=== PATIENT | male | born 2000 | race Caucasian/White ===

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

== ENCOUNTER 2019-09-15 14:22 | Emergency (ER) | payer BC, SELFPAY ==
--- NOTE | 2019-09-15 15:31 | EDPHYS ---
Physician Documentation [facility] Name: Salvador Salazar Age: 19 yrs Sex: Male : 2000 Arrival Date: 09/15/2019 Time: 14:28 Bed 23 Private MD: SCOTT Physician Steffen Castellon HPI: 09/14 15:25 This 19 yrs old Male presents to ER via Ambulatory with complaints of dane Toothache. 15:25 This 19 yrs old Male presents to ER via Ambulatory with complaints of dane Toothache. 15:25 The patient presents with pain, redness, swelling. The problem is located in the lower dane right third molar. Onset: The symptoms/episode began/occurred 3 day(s) ago. Duration: The symptoms are continuous, and are steadily getting worse. Modifying factors: The symptoms are alleviated by nothing, the symptoms are aggravated by chewing. Associated signs and symptoms: The patient has no apparent associated signs or symptoms. Severity of symptoms: At their worst the symptoms were moderate, in the emergency department the symptoms are unchanged. The patient has not experienced similar symptoms in the past. Historical: - Allergies: 14:39 No Known Allergies; ss - PSHx: 14:39 Appendectomy; ss - Immunization history:: Flu vaccine is not up to date. - Social history:: Smoking status: Patient reports the use of cigarette tobacco products, smokes one-half pack cigarettes per day, Patient uses alcohol, occasionally. Patient/guardian denies using street drugs. - Family history:: not pertinent. ROS: 15:25 Constitutional: Negative for fever, chills, and weight loss, Eyes: Negative for injury, dane pain, redness, and discharge, ENT: Negative for injury, pain, and discharge, Neck: Negative for injury, pain, and swelling, Respiratory: Negative for shortness of breath, cough, wheezing, and pleuritic chest pain, Abdomen/GI: Negative for abdominal pain, nausea, vomiting, diarrhea, and constipation, Back: Negative for injury and pain, : Negative for injury, bleeding, discharge, and swelling, MS/Extremity: Negative for injury and deformity, Skin: Negative for injury, rash, and discoloration, Neuro: Negative for headache, weakness, numbness, tingling, and seizure, Psych: Negative for depression, anxiety, suicide ideation, homicidal ideation, and hallucinations, Allergy/Immunology: Negative for hives, rash, and allergies, Endocrine: Negative for neck swelling, polydipsia, polyuria, polyphagia, and marked weight changes, Hematologic/Lymphatic: Negative for swollen nodes, abnormal bleeding, and unusual bruising. 15:25 Cardiovascular: Negative for chest pain, palpitations, and edema. 15:25 ENT: Positive for Teeth pain 15:25 Cardiovascular: Positive for Exam: 15:25 Constitutional: This is a well developed, well nourished patient who is awake, alert, dane and in no acute distress. Head/Face: Normocephalic, atraumatic. Eyes: Pupils equal round and reactive to light, extra-ocular motions intact. Lids and lashes normal. Conjunctiva and sclera are non-icteric and not injected. Cornea within normal limits. Periorbital areas with no swelling, redness, or edema. Neck: Trachea midline, no thyromegaly or masses palpated, and no cervical lymphadenopathy. Supple, full range of motion without nuchal rigidity, or vertebral point tenderness. No Meningismus. Chest/axilla: Normal chest wall appearance and motion. Nontender with no deformity. No lesions are appreciated. Cardiovascular: Regular rate and rhythm with a normal S1 and S2. No gallops, murmurs, or rubs. Normal PMI, no JVD. No pulse deficits. Respiratory: Lungs have equal breath sounds bilaterally, clear to auscultation and percussion. No rales, rhonchi or wheezes noted. No increased work of breathing, no retractions or nasal flaring. Abdomen/GI: Soft, non-tender, with normal bowel sounds. No distension or tympany. No guarding or rebound. No evidence of tenderness throughout. Back: No spinal tenderness. No costovertebral tenderness. Full range of motion. Male : Normal genitalia with no discharge or lesions. Skin: Warm, dry with normal turgor. Normal color with no rashes, no lesions, and no evidence of cellulitis. MS/ Extremity: Pulses equal, no cyanosis. Neurovascular intact. Full, normal range of motion. Neuro: Awake and alert, GCS 15, oriented to person, place, time, and situation. Cranial nerves II-XII grossly intact. Motor strength 5/5 in all extremities. Sensory grossly intact. Cerebellar exam normal. Normal gait. Psych: Awake, alert, with orientation to person, place and time. Behavior, mood, and affect are within normal limits. 15:25 ENT: Mouth: Lips: normal, moist, Oral mucosa: moist, Gums: noted to have cellulitis, reddened, Tongue: is normal, abscess, is not appreciated, drooling, is not appreciated. Vital Signs: 14:37 BP 139 / 96; Pulse 86; Resp 17; Temp 98.0; Pulse Ox 99% ; Weight 81.65 kg; Height 5 ft. ss 10 in. (177.80 cm); Pain 3/10; 14:37 Body Mass Index 25.83 (81.65 kg, 177.80 cm) MDM: 14:47 Patient medically screened. [facility] 15:29 Data reviewed: vital signs, nurses notes. [facility] Administered Medications: 15:35 Drug: Motrin 800 mg Route: PO; 15:40 Follow up: Response: Medication administered at discharge. 15:35 Drug: Augmentin 875 mg Route: PO; 15:40 Follow up: Response: No adverse reaction; Medication administered at discharge. Disposition: 09/15/19 15:30 Discharged to Home. Impression: Dental caries. - Condition is Stable. - Discharge Instructions: Dental Pain, Dental Pain, [id number]. - Prescriptions for Ibuprofen 600 mg Oral Tablet - take 1 tablet by ORAL route every 8 hours As needed take with food; 21 tablet. Tylenol- Codeine #3 300-30 mg Oral Tablet - take 2 tablet by ORAL route every 6 hours As needed; 30 tablet. - Medication Reconciliation Form, Thank You Letter, Antibiotic Education, Prescription Opioid Use form. - Work release form (09/15/19 15:39). ss - Follow up: Private Physician; When: 2 - 3 days; Reason: Recheck today's complaints, Continuance of care, Re-evaluation by your physician. - Problem is new. - Symptoms have improved. Signatures: Steffen Castellon MD MD cha Smirch, Shelby, RN RN Corrections: (The following items were deleted from the chart) 15:36 15:30 09/15/2019 15:30 Discharged to Home. Impression: Dental caries. Condition is ss Stable. Forms are Medication Reconciliation Form, Thank You Letter, Antibiotic Education, Prescription Opioid Use. Follow up: Private Physician; When: 2 - 3 days; Reason: Recheck today's complaints, Continuance of care, Re-evaluation by your physician. Problem is new. Symptoms have improved. dane
--- NOTE | 2019-09-15 15:31 | ER ---
Nurse's Notes [facility] Name: Salvador Salazar Age: 19 yrs Sex: Male : 2000 Arrival Date: 09/15/2019 Time: 14:28 Bed 23 Private MD: Diagnosis: Dental caries Presentation: 09/14 14:37 Chief complaint: Patient states: Right lower jaw tooth and gum pain for 1 week ss intermittently. No known fever. Coronavirus screen: Patient denies fever greater than 100.4F, cough, shortness of breath, or difficulty breathing. Proceed with normal triage process. Ebola Screen: Patient denies travel to an Ebola-affected area in the 21 days before illness onset. Initial Sepsis Screen: Does the patient meet any 2 criteria? No. Patient's initial sepsis screen is negative. Does the patient have a suspected source of infection? No. Patient's initial sepsis screen is negative. Risk Assessment: Do you want to hurt yourself or someone else? Patient reports no desire to harm self or others. 14:37 Method Of Arrival: Ambulatory ss 14:37 Acuity: FELICITAS 5 ss Historical: - Allergies: 14:39 No Known Allergies; ss - PSHx: 14:39 Appendectomy; ss - Immunization history:: Flu vaccine is not up to date. - Social history:: Smoking status: Patient reports the use of cigarette tobacco products, smokes one-half pack cigarettes per day, Patient uses alcohol, occasionally. Patient/guardian denies using street drugs. - Family history:: not pertinent. Screenin:49 Abuse screen: Denies threats or abuse. Denies injuries from another. Nutritional ss screening: No deficits noted. Tuberculosis screening: Never had TB. Fall Risk None identified. Vital Signs: 14:37 BP 139 / 96; Pulse 86; Resp 17; Temp 98.0; Pulse Ox 99% ; Weight 81.65 kg; Height 5 ft. ss 10 in. (177.80 cm); Pain 3/10; 14:37 Body Mass Index 25.83 (81.65 kg, 177.80 cm) ss ED Course: 14:28 Patient arrived in ED. am2 14:39 Triage completed. ss 14:40 Arm band placed on. 14:47 Steffen Castellon MD is Attending Physician. [facility] 14:49 Smirch, Marivel, RN is Primary Nurse. 14:49 Patient has correct armband on for positive identification. Bed in low position. Call light in reach. 15:35 No provider procedures requiring assistance completed. Patient did not have IV access ss during this emergency room visit. Administered Medications: 15:35 Drug: Motrin 800 mg Route: PO; ss 15:40 Follow up: Response: Medication administered at discharge. ss 15:35 Drug: Augmentin 875 mg Route: PO; ss 15:40 Follow up: Response: No adverse reaction; Medication administered at discharge. Outcome: 15:30 Discharge ordered by . [facility] 15:35 Discharged to home ambulatory. 15:35 Condition: good 15:35 Discharge instructions given to patient, Instructed on discharge instructions, follow up and referral plans. medication usage, Demonstrated understanding of instructions, follow-up care, medications, Prescriptions given X 2. 15:36 Patient left the ED. Signatures: Steffen Castellon MD MD cha Smirch, Shelby, RN RN Martita Horton am2
[2019-09-15] MEDS ORDERED: AMOX/K CLAV 875 MG TAB ONE (15:41)
[2019-09-15] MEDS ORDERED: IBUPROFEN 400 MG TAB ONE (15:41)
[2019-09-15 15:44] VITALS: BP 139/96; TEMP 98; O2SAT 99
== END 2019-09-15 15:36 | disposition home or self-care (01) ==
LOC: ER 14:22
DX: K02.9 Dental caries, unspecified (principal); F17.210 Nicotine dependence, cigarettes, uncomplicated
CPT/HCPCS: 99283

== ENCOUNTER 2024-07-02 18:49 | Emergency (ER) | payer BC, SELFPAY ==
--- OUTSIDE RECORDS SUMMARY | 2024-07-02 18:52 | XMS REPORT | Continuity of Care Document ---
Author Name Unknown Address [address] [facility] [address] [place] [address] [facility] thconnect Address [address] [facility] [address] [place] [address] Care Team Providers Care Supervisor Sawmill Name Role Phone Abby_Raman Attending Clinician Unavailable Jacey Camargo Attending Clinician [phone] CIRA Attending Clinician Unavailable Ryanne Garcia Attending Clinician [phone] ALMAZ Attending Clinician Unavailable Keshia Jurado Attending Clinician [phone] Irma Mcmillan Attending Clinician + [phone] Keisha Putnam Attending Clinician [phone] KEISHA MOSER Attending Clinician Unavailable Lab, Adc Fam Pob I Attending Clinician Unavailab Sosa Dos Santos Attending Clinician [phone] [facility] Attending Clinician Unavailable Doctor Unassigned, Deport Attending Clinician U kavon Canales Admitting Clinician Unavailable CIRA Admitting Clinician Unavailable ALMAZ Admitting Clinician Unavailable Payers Payer Name Policy Type Policy Number Effective Date [place]pir[place] on Date Source [place] [id number] 2018 00:00:00 Problems Condition Name Condition Details Condition Category Status Onset Date Resolution Date Last Treatment Date Treating Clinician Comments Source Pain in right foot Pain in Right Foot Problem Active 06-27 00:00: 00 [facility] Strain of muscle of right foot Strain of Muscle of Right Foot Problem Active 06-27 00:00: 00 [facility] Low back pain Low Back Pain Problem Active 2021-06 2 00:00: 00 [facility] 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 and Depressive Disorder Problem Active 2019-06 00:00: 00 [facility] Anxiety Anxiety Disease Active 02-27 00:00: 00 [facility] ADD (attention deficit disorder) ADD (attention deficit disorder) Disease Active 02-27 00:00: 00 [facility] Allergies, Adverse Reactions, Alerts Allergy Name Allergy Type Status Severity Reaction(s) Onset Date Inactive Date Treating Clinician Comments Source NO KNOWN ALLERGIE S Drug Class Active [facility] Social History Social Habit Start Date Stop Date Quantity Comments Source Sex Assigned At [facility] Exposure to SARS-CoV-2 (event) Not sure [facility] Alcohol intake 2019-09-18 00:00:00 2019-09-18 00:00:00 Current drinker of alcohol (finding) [facility] Tobacco use and exposure 2019-09-18 00:00:00 2019-09-18 00:00:00 Never used [facility] Smoking Status Start Date Stop Date Source Former Smoker [facility] Never smoker [facility] Medications Ordered Medication Name Filled Medication Name Start Date Stop Date Current Medication? Ordering Clinician Indication Dosage Frequency Signature (SIG) Comments Components Source FLUoxetine (PROZAC) 10 mg capsule 07-22 22:39: 20 Yes 10mg Take 10 mg by mouth daily. [facility] QUEtiapine (SEROQUEL) 100 mg tablet 10-08 00:00: 00 07-22 00:00 :00 No [id number] 100mg Take 1 tablet by mouth at bedtime. [facility] cetirizine 10 mg tablet Take 1 tablet every day by oral route. cetirizine 10 mg tablet Take 1 tablet every day by oral route. No 1 Q1D cetirizine 10 mg tablet Take 1 tablet every day by oral route. [facility] fluoxetine 20 mg capsule Take 1 capsule every day by oral route for 90 days. fluoxetine 20 mg capsule Take 1 capsule every day by oral route for 90 days. No 1capsul e(s) Q1D fluoxetine 20 mg capsule Take 1 capsule every day by oral route for 90 days. [facility] Vital Signs Vital Name Observation Time Observation Value Comments S ource BMI (Body Mass Index) 2024-05-06 00:00:00 27.5 kg/m2 [facility] BP Systolic 2024-05-06 00:00:00 130 mm[Hg] [facility] Height 2024-05-06 00:00:00 70 [in_i] [facility] Body Weight 2024-05-06 00:00:00 3072 [oz_av] [facility] BP Diastolic 2024-05-06 00:00:00 75 mm[Hg] [facility] Height 2023-10-05 00:00:00 70 [in_i] [facility] BMI (Body Mass Index) 2023-10-05 00:00:00 27.3 kg/m2 [facility] BP Diastolic 2023-10-05 00:00:00 84 mm[Hg] [facility] Body Weight 2023-10-05 00:00:00 3040 [oz_av] [facility] BP Systolic 2023-10-05 00:00:00 131 mm[Hg] [facility] BMI (Body Mass Index) 2023-03-29 00:00:00 27.6 kg/m2 [facility] BP Diastolic 2023-03-29 00:00:00 71 mm[Hg] [facility] BP Systolic 2023-03-29 00:00:00 125 mm[Hg] [facility] Body Weight 2023-03-29 00:00:00 3081.6 [oz_av] [facility] Height 2023-03-29 00:00:00 70 [in_i] [facility] BP Diastolic 2022-06-27 00:00:00 71 mm[Hg] [facility] Height 2022-06-27 00:00:00 70 [in_i] [facility] BMI (Body Mass Index) 2022-06-27 00:00:00 27.6 kg/m2 [facility] BP Systolic 2022-06-27 00:00:00 116 mm[Hg] [facility] Body Weight 2022-06-27 00:00:00 3078.4 [oz_av] [facility] BP Diastolic 2022-05-23 00:00:00 71 mm[Hg] [facility] Height 2022-05-23 00:00:00 70 [in_i] [facility] BMI (Body Mass Index) 2022-05-23 00:00:00 26.7 kg/m2 [facility] BP Systolic 2022-05-23 00:00:00 126 mm[Hg] [facility] Body Weight 2022-05-23 00:00:00 2976 [oz_av] [facility] BP Diastolic 2022-02-02 00:00:00 72 mm[Hg] [facility] Height 2022-02-02 00:00:00 70 [in_i] [facility] BMI (Body Mass Index) 2022-02-02 00:00:00 25.5 kg/m2 [facility] BP Systolic 2022-02-02 00:00:00 118 mm[Hg] [facility] Body Weight 2022-02-02 00:00:00 2844.8 [oz_av] [facility] BP Diastolic 2021-12-28 00:00:00 69 mm[Hg] [facility] Height 2021-12-28 00:00:00 70 [in_i] [facility] BMI (Body Mass Index) 2021-12-28 00:00:00 25 kg/m2 [facility] BP Systolic 2021-12-28 00:00:00 134 mm[Hg] [facility] Body Weight 2021-12-28 00:00:00 2790.4 [oz_av] [facility] BP Diastolic 2021-08-25 00:00:00 78 mm[Hg] [facility] Height 2021-08-25 00:00:00 70 [in_i] [facility] BMI (Body Mass Index) 2021-08-25 00:00:00 28.5 kg/m2 [facility] BP Systolic 2021-08-25 00:00:00 118 mm[Hg] [facility] Body Weight 2021-08-25 00:00:00 3180.8 [oz_av] [facility] BP Diastolic 2021-03-12 00:00:00 75 mm[Hg] [facility] Height 2021-03-12 00:00:00 70 [in_i] [facility] BMI (Body Mass Index) 2021-03-12 00:00:00 27.4 kg/m2 [facility] BP Systolic 2021-03-12 00:00:00 126 mm[Hg] [facility] Body Weight 2021-03-12 00:00:00 3059.2 [oz_av] [facility] BP Diastolic 2021-02-02 00:00:00 79 mm[Hg] [facility] Height 2021-02-02 00:00:00 70 [in_i] [facility] BMI (Body Mass Index) 2021-02-02 00:00:00 27.8 kg/m2 [facility] BP Systolic 2021-02-02 00:00:00 121 mm[Hg] [facility] Body Weight 2021-02-02 00:00:00 3097.6 [oz_av] [facility] BP Diastolic 2020-07-28 00:00:00 73 mm[Hg] [facility] Height 2020-07-28 00:00:00 70 [in_i] [facility] BMI (Body Mass Index) 2020-07-28 00:00:00 29.6 kg/m2 [facility] BP Systolic 2020-07-28 00:00:00 132 mm[Hg] [facility] Body Weight 2020-07-28 00:00:00 3302.4 [oz_av] [facility] Systolic blood pressure 2020-07-22 22:41:00 126 mm[Hg] [facility] Diastolic blood pressure 2020-07-22 22:41:00 82 mm[Hg] [facility] Body height 2020-07-22 22:35:00 175.3 cm [facility] Body weight 2020-07-22 22:35:00 90.719 kg [facility] BMI 2020-07-22 22:35:00 29.53 kg/m2 [facility] Oxygen saturation in Arterial blood by Pulse oximetry 2020-07-22 22:35:00 100 /min [facility] Heart rate 2020-07-22 22:35:00 86 /min [facility] Body temperature 2020-07-22 22:35:00 36.17 Hattie [facility] Respiratory rate 2020-07-22 22:35:00 18 /min [facility] Systolic blood pressure 2019-09-19 01:04:00 149 mm[Hg] [facility] Diastolic blood pressure 2019-09-19 01:04:00 90 mm[Hg] [facility] Heart rate 2019-09-19 01:04:00 94 /min [facility] Body temperature 2019-09-19 01:04:00 36.39 Hattie [facility] Respiratory rate 2019-09-19 01:04:00 16 /min [facility] Body weight 2019-09-19 01:04:00 81.647 kg [facility] Oxygen saturation in Arterial blood by Pulse oximetry 2019-09-19 01:04:00 97 /min [facility] Procedures Procedure Date / Time Performed Performing Clinicia n Source TDAP VACCINE, >11 YRS, IM 2020-07-22 22:49:26 Irma Torres [facility] NOTICE OF PRIVACY PRACTICES 2019-09-19 00:58:16 Doctor Unassigned, Deport [facility] CONSENT/REFUSAL FOR DIAGNOSIS AND TREATMENT 2019-09-19 00:57:50 Doctor Unassigned, Deport [facility] Encounters Start Date/Time End Date/Time Encounter Type Admission Type Attending Clinicians Care Facility Care Department Encounter ID Source 2024-05-06 00:00:00 2024-05-06 00:00:00 Jacey Camargo APRN, MSN, [facility]: [address] [facility], [address] [place] [phone] , Ph. [facility] [id number] [facility] 2023-10-05 00:00:00 2023-10-05 00:00:00 Jacey Camargo APRN, MSN, [facility]: [address] [place] [address], [address] [place] [phone] , Ph. [facility] [id number] [facility] 2023-07-25 00:00:00 2023-07-25 00:00:00 Outpatient L_Pena [facility] [id number] [facility] 2023-06-20 00:00:00 2023-06-20 00:00:00 Outpatient L_Pena [facility] [id number] [facility] 2023-05-16 00:00:00 2023-05-16 00:00:00 Outpatient L_Pena [facility] [id number] [facility] 2023-04-11 00:00:00 2023-04-11 00:00:00 Outpatient L_Pena [facility] [id number] [facility] 2023-04-10 00:00:00 2023-04-10 00:00:00 Outpatient L_Pena [facility] [id number] [facility] 2023-03-30 00:00:00 2023-03-30 00:00:00 Outpatient L_Pena [facility] [id number] [facility] 2023-03-29 00:00:00 2023-03-29 00:00:00 Outpatient L_Pena [facility] [id number] [facility] 2023-03-29 00:00:00 2023-03-29 00:00:00 Jacey Camargo APRN, MSN, [facility]: [address] [place] [address], [address] [place] [phone] , Ph. [facility] [id number] [facility] 2022-06-27 00:00:00 2022-06-27 00:00:00 Outpatient L_Pena [facility] [id number] [facility] 2022-06-27 00:00:00 2022-06-27 00:00:00 Jacey Camargo APRN, MSN, [facility]: [address] [place] [address], [address] [place] [phone] , Ph. [facility] [id number] [facility] 2022-05-25 00:00:00 2022-05-25 00:00:00 Outpatient L_Pena [facility] [id number] [facility] 2022-05-24 00:00:00 2022-05-24 00:00:00 Outpatient L_Pena [facility] [id number] [facility] 2022-05-23 00:00:00 2022-05-23 00:00:00 Outpatient L_Pena [facility] [id number] [facility] 2022-05-23 00:00:00 2022-05-23 00:00:00 Jacey Camargo APRN, MSN, [facility]: [address] [place] [address], [address] [place] [phone] , Ph. [facility] [id number] [facility] 2022-02-02 00:00:00 2022-02-02 00:00:00 Outpatient L_Pena [facility] [id number] [facility] 2022-02-02 00:00:00 2022-02-02 00:00:00 Jacey Camargo APRN, MSN, [facility]: [address] [facility] [address], [address], [place] [address] , Ph. [facility] [id number] [facility] 2022-02-02 00:00:00 2022-02-02 00:00:00 Outpatient Jacey Camargo [facility] [id number] 2022-02-02 00:00:00 2022-02-02 00:00:00 Outpatient Jacey Camargo [facility] [id number] 2022-02-02 00:00:00 2022-02-02 00:00:00 Outpatient Jacey Camargo [facility] [id number] 2021-12-28 10:13:00 2021-12-28 10:13:00 Outpatient WATERS_S [facility] [id number] [facility] 2021-12-28 00:00:00 2021-12-28 00:00:00 Jacey Camargo APRN, MSN, [facility]: [address] [facility] [address], [address], [place] [address] , Ph. [facility] [id number] [facility] 2021-12-28 00:00:00 2021-12-28 00:00:00 Outpatient Jacey Camargo [facility] [id number] 2021-12-28 00:00:00 2021-12-28 00:00:00 Outpatient Jacey Camargo [facility] [id number] 2021-12-28 00:00:00 2021-12-28 00:00:00 Outpatient Jacey Camargo [facility] [id number] 2021-08-25 05:46:00 2021-08-25 05:46:00 Outpatient WATERS_S [facility] [id number] [facility] 2021-08-25 00:00:00 2021-08-25 00:00:00 JAEL Armstrong-C: [address] [place] [address], [address] [address] , Ph. [facility] [id number] [facility] 2021-08-25 00:00:00 2021-08-25 00:00:00 Outpatient Ryanne Garcia [facility] [id number] 2021-08-24 02:12:00 2021-08-24 02:12:00 Outpatient WATERS_S [facility] [id number] [facility] 2021-07-12 04:20:00 2021-07-12 04:20:00 Outpatient WATERS_S [facility] [id number] [facility] 2021-03-15 05:36:00 2021-03-15 05:36:00 Outpatient SCHAUBROECK _L [facility] [id number] [facility] 2021-03-12 12:42:00 2021-03-12 12:42:00 Outpatient SCHAUBROECK _L [facility] [id number] [facility] 2021-03-12 00:00:00 2021-03-12 00:00:00 Keshia paul [facility]-: [address] [facility] [address], [address], [place] [address] , Ph. [facility] [id number] [facility] 2021-03-12 00:00:00 2021-03-12 00:00:00 Outpatient Keshia Jurado [facility] [id number] 2021-02-22 06:21:00 2021-02-22 06:21:00 Outpatient SCHAUBROECK _L [facility] [id number] [facility] 2021-02-22 06:21:00 2021-02-22 06:21:00 Outpatient SCHAUBROECK _L [facility] [id number] [facility] 2021-02-15 12:08:00 2021-02-15 12:08:00 Outpatient SCHAUBROECK _L [facility] [id number] [facility] 2021-02-02 11:34:00 2021-02-02 11:34:00 Outpatient SCHAUBROECK _L [facility] [id number] [facility] 2021-02-02 00:00:00 2021-02-02 00:00:00 Outpatient Keshia Jurado [facility] [id number] 2021-02-02 00:00:00 2021-02-02 00:00:00 Outpatient Keshia Jurado [facility] [id number] 2021-02-02 00:00:00 2021-02-02 00:00:00 Outpatient Keshia Jurado [facility] [id number] 2021-02-02 00:00:00 2021-02-02 00:00:00 REGINE McnealC: [address] [place] [address], [address] [place] [phone] , Ph. [facility] [id number] [facility] 2020-12-16 04:35:00 2020-12-16 04:35:00 Outpatient SCHAUBROECK _L [facility] [id number] [facility] 2020-08-22 06:48:00 2020-08-22 06:48:00 Outpatient SCHAUBROECK _L [facility] [id number] [facility] 2020-07-28 02:28:00 2020-07-28 02:28:00 Outpatient SCHAUBROECK _L [facility] [id number] [facility] 2020-07-28 00:00:00 2020-07-28 00:00:00 Outpatient Keshia Jurado [facility] [id number] 2020-07-28 00:00:00 2020-07-28 00:00:00 REGINE McnealC: [address] [place] [address], [address] [place] [phone] , Ph. [facility] [id number] [facility] 2020-07-24 01:03:00 2020-07-24 01:03:00 Outpatient SCHAUBROECK _L [facility] [id number] [facility] 2020-07-23 04:40:00 2020-07-23 04:40:00 Outpatient SCHAUBROECK _L [facility] [id number] [facility] 2020-07-22 16:22:44 2020-07-22 16:42:44 Urgent Care Irma Torres Leslie A [facility] [address] .114 [id number] [facility] 2020-07-22 16:40:00 2020-07-22 16:40:00 Outpatient KEISHA WILLARD [facility] [id number] [facility] 2020-07-15 17:20:59 2020-07-15 17:40:59 Laboratory Only Lab, Adc Fam Pob I Irma Torres [facility] [address] .114 [id number] [facility] 2020-06-19 01:02:00 2020-06-19 01:02:00 Outpatient SCHAUBROECK _L [facility] [id number] [facility] 2020-06-19 01:02:00 2020-06-19 01:02:00 Outpatient SCHAUBROECK _L [facility] [id number] [facility] 2019-09-18 20:06:13 2019-09-18 20:21:00 Emergency Sosa Siu [facility] ..114 [id number] [facility] 2019-09-18 20:06:13 2019-09-18 20:06:13 Emergency X [facility]A [facility] ERT [id number] [facility] 2019-09-18 00:00:00 2019-09-18 00:00:00 Orders Only Doctor Unassigned, Deport [facility] .114 [id number] [facility]
[2024-07-02] MEDS ORDERED: ONDANSETRON 4 MG/2 ML VIAL ONE (20:09)
[2024-07-02] MEDS ORDERED: MORPHINE 4 MG/ML SYR ONE (20:09)
[2024-07-02] MEDS ORDERED: NA CHLORIDE 0.9% 1,000 ML ONE (20:10)
[2024-07-02 20:37] LABS: Absolute Lymphocytes (CBC) 1.3 K/uL (0.7-4.9); Absolute Neutrophil 7.7 K/uL (1.8-8.0); Anion Gap 4.8 mEq/L (5.0-15.0); Basophils % 0.2 % (0-1.3); Eosinophils % 0.3 % (0-4.4); Hematocrit 44.9 % (39.6-49.0); Hemoglobin 15.7 g/dL (13.6-17.9); Lymphocytes % 12.5 % (15.3-44.8); MCH 29.7 pg (27.0-35.0); MCHC 35.1 g/dL (32.0-36.0); MCV 84.6 fL (80-100); MPV 9.8 fL (7.6-11.3); Monocytes % 10.3 % (3.3-12.3); Neutrophils % 76.7 % (41.7-73.7); Platelets 230 thou/uL (152-406); Potassium 3.8 mEq/L (3.5-5.1); Red Cell Distribution Width 12.4 % (12.1-15.2)
[2024-07-02] MEDS ORDERED: LIDOCAINE 1% MPF 5 ML VIAL ONE (20:42)
[2024-07-02] MEDS ORDERED: BUPIVACAINE 0.5% PF 10 ML VIAL ONE (20:42)
[2024-07-02] MEDS ORDERED: KETOROLAC 30 MG/ML INJ ONE (21:19)
[2024-07-02] MEDS ORDERED: CLINDAMYCIN 900MG/D5W 900 MG/50 ML IVPB IV ONE (21:20)
--- NOTE | 2024-07-02 21:43 | ER ---
Nurse's Notes [facility] Name: Salvador Salazar Age: 23 yrs Sex: Male : 2000 Arrival Date: 07/02/2024 Time: 18:49 Bed 13 Private MD: Diagnosis: Disorder of teeth and supporting structures, unspecified Presentation: 07/02 19:29 Chief complaint: Patient states: TOOTHACHE TO LEFT UPPER SIDE ONSET MONDAY. PT HAS cm10 NOTED SWELLING TO HER FACE. Coronavirus screen: Client denies travel out of the [place] in the last 14 days. Ebola Screen: Patient denies travel to an Ebola-affected area in the 21 days before illness onset. Initial Sepsis Screen: Does the patient meet any 2 criteria? No. Patient's initial sepsis screen is negative. Does the patient have a suspected source of infection? No. Patient's initial sepsis screen is negative. Risk Assessment: Do you want to hurt yourself or someone else? Patient reports no desire to harm self or others. Onset of symptoms was July 02, 2024. 19:29 Method Of Arrival: Ambulatory cm10 19:29 Acuity: FELICITAS 3 cm10 Triage Assessment: 19:31 General: Appears in no apparent distress. uncomfortable, Behavior is calm, cooperative. cm10 Pain: Complains of pain in upper left second molar. EENT: Poor dentition noted. Dental caries noted in upper left second molar (#15). Neuro: No deficits noted. Level of Consciousness is awake, alert, obeys commands, Oriented to person, place, time, situation, Appropriate for age. Respiratory: No deficits noted. Airway is patent Respiratory effort is even, unlabored, Respiratory pattern is regular, symmetrical. Historical: - Allergies: 19:30 No Known Allergies; cm10 - Home Meds: 19:30 Prozac Oral [Active]; cm10 - PMHx: 19:30 Depressive disorder; cm10 - Immunization history:: Adult Immunizations unknown. - Infectious Disease History:: Denies. - Social history:: Smoking status: Reported history of juuling and/or vaping. Screenin:02 [facility] ED Fall Risk Assessment (Adult) History of falling in the last 3 months, aa10 including since admission No falls in past 3 months (0 pts) Confusion or Disorientation No (0 pts) Intoxicated or Sedated No (0 pts) Impaired Gait No (0 pts) Mobility Assist Device Used No (0 pt) Altered Elimination No (0 pt) Score/Fall Risk Level 0 - 2 = Low Risk Oriented to surroundings, Maintained a safe environment, Educated pt \T\ family on fall prevention, incl call for assistance when getting out of bed, Assessed \T\ reinforced patient's understanding of fall precautions, Provided non-skid footwear. Abuse screen: Denies threats or abuse. Denies injuries from another. Nutritional screening: No deficits noted. Tuberculosis screening: No symptoms or risk factors identified. Assessment: 20:00 Pain: Complains of pain in upper left first molar and upper left second molar Pain br2 radiates to left jaw, left cheek and left mandible Pain currently is 8 out of 10 on a pain scale. 20:15 Reassessment: Patient and/or family updated on plan of care and expected duration. Pain br2 level reassessed. Patient is alert, oriented x 3, equal unlabored respirations, skin warm/dry/pink. 20:18 General: Appears uncomfortable, Behavior is calm, cooperative. br2 Vital Signs: 19:29 BP 145 / 82; Pulse 85; Resp 15; Temp 97.9; Pulse Ox 99% on R/A; Weight 86.18 kg; Height cm10 5 ft. 10 in. ; Pain 5/10; 21:01 BP 146 / 80; Pulse 85; Resp 18; Temp 97.2; Pulse Ox 100% ; Pain 2/10; br2 22:07 BP 140 / 80; Pulse 84; Resp 20 S; Pulse Ox 99% ; aa10 19:29 Body Mass Index 27.26 (86.18 kg, 177.8 cm) cm10 19:29 Pain Scale: Adult cm10 21:01 Pain Scale: Adult br2 ED Course: 18:56 Patient arrived in ED. hb 19:10 Steffen Hernandez PA is PHCP. cp 19:10 Steffen Castellon MD is Attending Physician. cp 19:30 Triage completed. cm10 19:31 Arm band placed on right wrist. Patient placed in waiting room. cm10 20:08 Jessica Rodas, SUKUMAR is Primary Nurse. br2 20:15 BMP Sent. br2 20:15 CBC with Diff Sent. br2 20:15 Inserted saline lock: 20 gauge in right antecubital area, using aseptic technique. br2 Blood collected. Flushed with 10 mL NS. 20:15 Initial lab(s) drawn, by me, sent to lab. Inserted saline lock: 20 gauge in right vk antecubital area, using aseptic technique. 21:42 Royal Dennis DDS is Referral Physician. cp 22:02 Patient has correct armband on for positive identification. Allergy band placed. Fall aa10 risk band placed. Placed in gown. Bed in low position. Call light in reach. Side rails up X2. Provided Education on: on plan of care. 22:02 No provider procedures requiring assistance completed. No provider procedures requiring aa10 assistance completed. IV discontinued. 22:07 IV discontinued. aa10 Administered Medications: 20:14 Drug: Ondansetron IVP 4 mg IVP once; over 2 minutes Route: IVP; Site: right antecubital;br2 22:00 Follow up: Response: No adverse reaction; Marked relief of symptoms aa10 20:15 Drug: NS 0.9% IV 1000 ml IV at 1000 ml once; to be given as a bolus over 60 minutes br2 Route: IV; Rate: 1000 ml; Site: right antecubital; 22:01 Follow up: IV Status: Completed infusion; IV Intake: 1000ml aa10 22:01 Follow up: Response: No adverse reaction; Marked relief of symptoms aa10 20:15 Drug: morphine IVP or IV 4 mg IVP once over 4 mins Route: IVP; Infused Over: 4 mins; br2 Site: right antecubital; 22:01 Follow up: Response: No adverse reaction; Marked relief of symptoms aa10 21:35 Drug: Clindamycin IVPB 900 mg IVPB once over 30 mins; (mix in 50 mL) Route: IVPB; aa10 Infused Over: 30 mins; Site: left antecubital; 22:17 Follow up: Response: No adverse reaction; Marked relief of symptoms aa10 22:17 Follow up: IV Status: Completed infusion; IV Intake: 50ml aa10 21:35 Drug: Ketorolac IVP 15 mg IVP once Route: IVP; Site: left antecubital; aa10 21:59 Follow up: Response: No adverse reaction; Marked relief of symptoms aa10 21:36 Drug: Lidocaine Infiltration (1 %) 5 ml 5 ml Infiltration once; to bedside {Note: GIVEN aa10 BY MD.} Volume: 5 ml; Route: Infiltration; 22:00 Follow up: Response: No adverse reaction; Marked relief of symptoms aa10 21:36 Drug: Bupivacaine Infiltration (0.5 %) 5 ml 10 ml Infiltration once {Note: given by aaPat GAYTAN} Volume: 10 ml; Route: Infiltration; 22:00 Follow up: Response: No adverse reaction; Marked relief of symptoms aa10 Medication: 22:05 VIS not applicable for this client. aa10 Intake: 22:01 IV: 1000ml; Total: 1000ml. aa10 22:17 IV: 50ml; Total: 1050ml. aa10 Outcome: 21:43 Discharge ordered by MD. cp 22:05 Discharged to home ambulatory, aa10 22:05 Condition: good 22:05 Discharge instructions given to patient, Instructed on discharge instructions, Demonstrated understanding of instructions, follow-up care, medications, Prescriptions given X 2, 22:18 Patient left the ED. aa10 Signatures: Steffen Hernandez PA PA cp Baxter, Heather, Claudia Martinez RN, RN RN cm10 Marlen Marquis Belinda, RN RN br2 Marco Murphy RN RN aa10 Corrections: (The following items were deleted from the chart) 19:31 19:30 Home Meds: None; cm10 cm10 19:31 19:30 PMHx: None; cm10 cm10 20:20 20:15 Reassessment: Patient and/or family updated on plan of care and expected br2 duration. Pain level reassessed. br2 22:17 22:00 Response: No adverse reaction; Marked relief of symptoms aa10 aa10
--- NOTE | 2024-07-02 21:43 | EDPHYS ---
Physician Documentation [facility] Name: Salvador Salazar Age: 23 yrs Sex: Male : 2000 Arrival Date: 07/02/2024 Time: 18:49 Bed 13 Private MD: ED Physician Steffen Castellon HPI: 07/02 19:35 This 23 yrs old Male presents to ER via Ambulatory with complaints of Toothache. cp 19:35 The patient presents with broken tooth/teeth, pain, swelling. The problem is located in cp the left upper molar. 19:35 Onset: The symptoms/episode began/occurred 3 day(s) ago. cp 19:35 Associated signs and symptoms: Pertinent positives: swelling, facial, Pertinent cp negatives: fever, inability to eat. 19:35 Severity of symptoms: in the emergency department the symptoms are unchanged, despite cp home interventions. Historical: - Allergies: 19:30 No Known Allergies; cm10 - Home Meds: 19:30 Prozac Oral [Active]; cm10 - PMHx: 19:30 Depressive disorder; cm10 - Immunization history:: Adult Immunizations unknown. - Infectious Disease History:: Denies. - Social history:: Smoking status: Reported history of juuling and/or vaping. ROS: 19:40 ENT: Positive for dental pain, Negative for drainage from ear(s), ear pain, difficulty cp swallowing, difficulty handling secretions, 19:40 Eyes: Negative for injury, pain, redness, and discharge, cp 19:40 Constitutional: Negative for body aches, chills, fever, 19:40 Respiratory: Negative for cough, shortness of breath, wheezing, 19:40 Abdomen/GI: Negative for abdominal pain, vomiting, diarrhea, constipation, 19:40 Skin: Positive for swelling, of the left facial cheek, 19:40 All other systems are negative, Exam: 19:45 Constitutional: The patient appears in no acute distress, alert, awake, non-toxic, well cp developed, well nourished, uncomfortable, 19:45 Head/face: Noted is swelling, that is mild, of the left cheek, tenderness, that is cp moderate, of the left cheek, 19:45 Eyes: Periorbital structures: swelling, that is mild, left infraorbital, Pupils: equal, round, and reactive to light and accomodation, Extraocular movements: intact throughout, Conjunctiva: normal, no exudate, no injection, Sclera: no appreciated abnormality, Lids and lashes: appear normal, bilaterally, 19:45 ENT: External ear(s): are unremarkable, Nose: is normal, Mouth: Lips: moist, Oral mucosa: moist, Posterior pharynx: Airway: no evidence of obstruction, patent, Dental exam: abscess, that is moderate, specifically in the upper left first molar (#14), dental caries, that is mild, diffusely, pain, that is moderate, specifically in the upper left first molar (#14), Voice: is normal, 19:45 Neck: ROM/movement: is normal, is supple, without pain, no range of motions limitations, no meningismus, no nuchal rigidity, 19:45 Chest/axilla: Inspection: normal, 19:45 Cardiovascular: Rate: normal, Rhythm: regular, 19:45 Respiratory: the patient does not display signs of respiratory distress, Respirations: normal, no use of accessory muscles, no retractions, labored breathing, is not present, Breath sounds: are clear throughout, no decreased breath sounds, no stridor, no wheezing, 19:45 Abdomen/GI: Inspection: abdomen appears normal, Palpation: abdomen is soft and non-tender, in all quadrants, Vital Signs: 19:29 BP 145 / 82; Pulse 85; Resp 15; Temp 97.9; Pulse Ox 99% on R/A; Weight 86.18 kg; Height cm10 5 ft. 10 in. ; Pain 5/10; 21:01 BP 146 / 80; Pulse 85; Resp 18; Temp 97.2; Pulse Ox 100% ; Pain 2/10; br2 22:07 BP 140 / 80; Pulse 84; Resp 20 S; Pulse Ox 99% ; aa10 19:29 Body Mass Index 27.26 (86.18 kg, 177.8 cm) cm10 19:29 Pain Scale: Adult cm10 21:01 Pain Scale: Adult br2 Procedures: 21:45 I \T\ D: Incision and drainage was performed for an abscess of the left upper molar cp Anesthetized with 4cc mixture 1% lidocaine and 0.5% marcaine. Incised with #11 blade. Drained moderate amount purulent fluid. the patient tolerated the procedure well. MDM: 19:32 Medical Screening Exam initiated 20:00 Differential diagnosis: dental abscess, pericoronitis, cellulitis, sepsis. 21:42 Data reviewed: vital signs, nurses notes, lab test result(s), and as a result, I will cp discharge patient. 21:42 I considered the following discharge prescriptions or medication management in the emergency department Medications were administered in the Emergency Department. See MAR. Counseling: I had a detailed discussion with the patient and/or guardian regarding the historical points, exam findings, and any diagnostic results supporting the discharge/admit diagnosis, lab results, the need for outpatient follow up, for definitive care, a dentist, OMF, to return to the emergency department if symptoms worsen or persist or if there are any questions or concerns that arise at home. Response to treatment: the patient's symptoms have mildly improved after treatment, and as a result, I will discharge patient. 07/02 19:36 Order name: CBC with Diff; Complete Time: 21:05 07/02 19:36 Order name: BMP; Complete Time: 21:05 07/02 19:36 Order name: IV; Complete Time: 20:15 Administered Medications: 20:14 Drug: Ondansetron IVP 4 mg IVP once; over 2 minutes Route: IVP; Site: right antecubital;br2 22:00 Follow up: Response: No adverse reaction; Marked relief of symptoms aa10 20:15 Drug: NS 0.9% IV 1000 ml IV at 1000 ml once; to be given as a bolus over 60 minutes br2 Route: IV; Rate: 1000 ml; Site: right antecubital; 22:01 Follow up: IV Status: Completed infusion; IV Intake: 1000ml aa10 22:01 Follow up: Response: No adverse reaction; Marked relief of symptoms aa10 20:15 Drug: morphine IVP or IV 4 mg IVP once over 4 mins Route: IVP; Infused Over: 4 mins; br2 Site: right antecubital; 22:01 Follow up: Response: No adverse reaction; Marked relief of symptoms aa10 21:35 Drug: Clindamycin IVPB 900 mg IVPB once over 30 mins; (mix in 50 mL) Route: IVPB; aa10 Infused Over: 30 mins; Site: left antecubital; 22:17 Follow up: Response: No adverse reaction; Marked relief of symptoms aa10 22:17 Follow up: IV Status: Completed infusion; IV Intake: 50ml aa10 21:35 Drug: Ketorolac IVP 15 mg IVP once Route: IVP; Site: left antecubital; aa10 21:59 Follow up: Response: No adverse reaction; Marked relief of symptoms aa10 21:36 Drug: Lidocaine Infiltration (1 %) 5 ml 5 ml Infiltration once; to bedside {Note: GIVEN aa10 BY MD.} Volume: 5 ml; Route: Infiltration; 22:00 Follow up: Response: No adverse reaction; Marked relief of symptoms aa10 21:36 Drug: Bupivacaine Infiltration (0.5 %) 5 ml 10 ml Infiltration once {Note: given by jack GAYTAN} Volume: 10 ml; Route: Infiltration; 22:00 Follow up: Response: No adverse reaction; Marked relief of symptoms aa10 Disposition: 07/03 21:21 Chart complete. cp Disposition Summary: 07/02/24 21:43 Discharge Ordered Notes: Location: Home cp Problem: new cp Symptoms: have improved cp Condition: Stable cp Diagnosis - Disorder of teeth and supporting structures, unspecified cp Followup: cp - With: Royal Dennis DDS - When: 2 - 3 days - Reason: Recheck today's complaints Discharge Instructions: - Discharge Summary Sheet cp - Dental Abscess cp - Dental Pain cp Forms: - Medication Reconciliation Form cp - Antibiotic Education cp - Prescription Opioid Use cp - Patient Portal Instructions cp - Leadership Thank You Letter cp Prescriptions: - Anaprox DS 550 mg Oral Tablet - take 1 tablet ORAL route every 12 hours As needed; 20 tablet; Refills: 0, cp Product Selection Permitted - Clindamycin HCl 300 mg Oral Capsule - take 1 capsule ORAL route every 6 hours for 10 days; 40 capsule; Refills: 0, cp Product Selection Permitted Addendum: 07/04/2024 09:37 Co-signature as Attending Physician, Steffen Castellon MD I agree with the assessment and c nava plan of care. Signatures: Dispatcher [employer] Steffen Rasmussen MD MD cha Page, Corey, PA PA cp Martinez, Clarissa RN RN cm10 Jessica Rodas RN RN br2 Marco Murphy RN RN aa10 Corrections: (The following items were deleted from the chart) 07/02 19:31 19:30 Home Meds: None; cm10 cm10 19:31 19:30 PMHx: None; cm10 cm10 07/03 21:18 21:16 I \T\ D: Incision and drainage was performed for an abscess of the left upper molar cp Anesthetized with 4cc mixture 1% lidocaine and 0.5% marcaine. Incised with #11 blade. Drained moderate amount purulent fluid. the patient tolerated the procedure well, cp 21:19 07/02 22:00 I \T\ D: Incision and drainage was performed for an abscess of the left upper cp molar Anesthetized with 4cc mixture 1% lidocaine and 0.5% marcaine. Incised with #11 blade. Drained moderate amount purulent fluid. the patient tolerated the procedure well, cp
[2024-07-05 01:45] VITALS: BP 140/80; TEMP 97.2; O2SAT 99
== END 2024-07-02 22:18 | disposition home or self-care (01) ==
LOC: ER 18:49
DX: K04.7 Periapical abscess without sinus (principal)
CPT/HCPCS: 36415; 80048; 85025; 99284; J2003; J2405; J7030

== ENCOUNTER 2024-09-17 15:26 | Emergency (ER) | payer SELFPAY ==
--- OUTSIDE RECORDS SUMMARY | 2024-09-17 15:30 | XMS REPORT | Continuity of Care Document ---
Author Name Unknown Address [address] [place] [address] [facility] Address [address] [place] [address] Care Team Providers Care Tutor Coordinator Name Role Phone PCP, PATIENT DOES NOT HAVE A Primary Care Physic paige Unavailable CARLOS A OROURKE Attending Clinician Unavailable CARLOS A OROURKE Attending Clinician Unavailable Carlos A Burnette Attending Clinician [phone] L_Raman Attending Clinician Unavailable Jacey Camargo Attending Clinician [phone] WATERS_S Attending Clinician Unavailable Ryanne Garcia Attending Clinician [phone] SCHAUBROTANVI_Abby Attending Clinician Unavailable Keshia Jurado Attending Clinician [phone] Irma Mcmillan Attending Clinician [phone] Keisha Putnam Attending Clinician [phone] KEISHA MOSER Attending Clinician Unavailable Lab, Adc Fam Pob I Attending Clinician Unavailab Sosa Dos Santos Attending Clinician [phone] SOSA [facility] Attending Clinician Unavailable Doctor Unassigned, [place] Attending Clinician U navailable CARLOS A OROURKE Admitting Clinician Unavailable L_Pennhung Admitting Clinician Unavailable WATERS_S Admitting Clinician Unavailable CATALINAROTANVI_Abby Admitting Clinician Unavailable Payers Payer Name Policy Type Policy Number Effective Date Expirati on Date Source [facility] OUT [facility] STATE [id number] 2018 00:00:00 [place] [id number] 2018 00:00:00 Problems Condition Name Condition Details Condition Category Status Onset Date Resolution Date Last Treatment Date Treating Clinician Comments Source Pain in right foot Pain in Right Foot Problem Active 06-27 00:00: 00 [facility] Strain of muscle of right foot Strain of Muscle of Right Foot Problem Active 06-27 00:00: 00 [facility] Low back pain Low Back Pain Problem Active 2021-06 00:00: 00 [facility] 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 and Depressive Disorder Problem Active 2019-06 00:00: 00 [facility] Anxiety Anxiety Disease Active 02-27 00:00: 00 [facility] ADD (attention deficit disorder) ADD (attention deficit disorder) Disease Active 02-27 00:00: 00 [facility] Allergies, Adverse Reactions, Alerts Allergy Name Allergy Type Status Severity Reaction(s) Onset Date Inactive Date Treating Clinician Comments Source NO KNOWN ALLERGIE S Drug Class Active [facility] Social History Social Habit Start Date Stop Date Quantity Comments [facility] to SARS-CoV-2 (event) Not sure [facility] Alcoholic beverage intake 2019-09-18 00:00:00 2019-09-18 00:00:00 0 /d [facility] History of Social function 2019-09-18 00:00:00 2019-09-18 00:00:00 [facility] Alcohol intake 2019-09-18 00:00:00 2019-09-18 00:00:00 Current drinker of alcohol (finding) [facility] Tobacco use and exposure 2014-08-13 00:00:00 2014-08-13 00:00:00 Smokeless tobacco non-user [facility] Sex assigned at 2000 00:00:00 2000 00:00:00 [facility] Smoking Status Start Date Stop Date Source Former Smoker [facility] Never smoked tobacco [facility] Medications Ordered Medication Name Filled Medication Name Start Date Stop Date Current Medication? Ordering Clinician Indication Dosage Frequency Signature (SIG) Comments Components Source clindamycin (CLEOCIN HCL) capsule 300 mg 09-10 03:45: 00 09-10 03:16 :00 No 300mg 300 mg, Oral, ONCE NOW, 1 dose, On Mon09/09/24 at 2245, DMITRI, Reason for Anti-Infec tive: Empiric Therapy for Suspected Infection, Empiric Therapy Site: Skin / Soft tissue, Duration of therapy: Once (ED), Restricted use approved by: ED PROVIDER [facility] clindamycin 300 mg capsule 09-10 00:00: 00 09-18 04:59 :00 Yes [id number] 300mg Take 1 capsule by mouth 4 (four) times daily for 7 days. [facility] FLUoxetine (PROZAC) 10 mg capsule 07-22 22:39: 20 Yes 10mg Take 10 mg by mouth daily. [facility] FLUoxetine (PROZAC) 10 mg capsule 07-22 16:39: 20 Yes 10mg Take 10 mg by mouth daily. [facility] QUEtiapine (SEROQUEL) 100 mg tablet 10-08 00:00: 00 07-22 00:00 :00 No [id number] 100mg Take 1 tablet by mouth at bedtime. [facility] cetirizine 10 mg tablet Take 1 tablet every day by oral route. cetirizine 10 mg tablet Take 1 tablet every day by oral route. No 1 Q1D cetirizine 10 mg tablet Take 1 tablet every day by oral route. [facility] fluoxetine 20 mg capsule Take 1 capsule every day by oral route for 90 days. fluoxetine 20 mg capsule Take 1 capsule every day by oral route for 90 days. No 1capsul e(s) Q1D fluoxetine 20 mg capsule Take 1 capsule every day by oral route for 90 days. [facility] naproxen sodium 550 mg tablet TAKE 1 TABLET BY MOUTH EVERY 12 HOURS NEEDED FOR PAIN naproxen sodium 550 mg tablet TAKE 1 TABLET BY MOUTH EVERY 12 HOURS NEEDED FOR PAIN No naproxen sodium 550 mg tablet TAKE 1 TABLET BY MOUTH EVERY 12 HOURS NEEDED FOR PAIN [facility] ibuprofen 800 mg tablet TAKE 1 TABLET BY MOUTH THREE TIMES DAILY NEEDED FOR PAIN (SCALE OF 4-6) ibuprofen 800 mg tablet TAKE 1 TABLET BY MOUTH THREE TIMES DAILY NEEDED FOR PAIN (SCALE OF 4-6) No ibuprofen 800 mg tablet TAKE 1 TABLET BY MOUTH THREE TIMES DAILY NEEDED FOR PAIN (SCALE OF 4-6) [facility] mupirocin 2 % topical ointment APPLY A SMALL AMOUNT TO THE AFFECTED AREA BY TOPICAL ROUTE 2-3 TIMES PER DAY mupirocin 2 % topical ointment APPLY A SMALL AMOUNT TO THE AFFECTED AREA BY TOPICAL ROUTE 2-3 TIMES PER DAY No mupirocin 2 % topical ointment APPLY A SMALL AMOUNT TO THE AFFECTED AREA BY TOPICAL ROUTE 2-3 TIMES PER DAY [facility] Immunizations Ordered Immunization Name Filled Immunization Name Date Status Comments Source TDAP 2020-07-22 00:00:00 Completed [facility] TDAP 2020-07-22 00:00:00 Completed [facility] Influenza Virus Vaccine Quad IM 3+ 2014-04-15 00:00:00 Completed [facility] Influenza Virus Vaccine Quad IM + 2014-04-15 00:00:00 Completed [facility] Influenza Virus Vaccine Quad IM 3+ 2014-04-15 00:00:00 Completed [facility] Influenza Virus Vaccine Quad IM 3+ 2014-04-15 00:00:00 Completed [facility] Influenza Virus Vaccine Quad IM 3+ 2014-04-15 00:00:00 Completed [facility] HPV 2014-01-22 00:00:00 Completed [facility] HPV 2014-01-22 00:00:00 Completed [facility] HPV 2014-01-22 00:00:00 Completed HPV 2014-01-22 00:00:00 Completed [facility] HPV 2014-01-22 00:00:00 Completed [facility] TDAP 2011-10-20 00:00:00 Completed [facility] Varicella (varivax)(chicken pox) 2011-10-20 00:00:00 Completed [facility] HPV 2011-10-20 00:00:00 Completed [facility] Meningococcal Polysaccharide (groups A, C, Y and W-135) conjugate vaccine (MCV4P) 2011-10-20 00:00:00 Completed [facility] TDAP 2011-10-20 00:00:00 Completed [facility] Varicella (varivax)(chicken pox) 2011-10-20 00:00:00 Completed [facility] HPV 2011-10-20 00:00:00 Completed [facility] HPV 2011-10-20 00:00:00 Completed Meningococcal Polysaccharide (groups A, C, Y and W-135) conjugate vaccine (MCV4P) 2011-10-20 00:00:00 Completed TDAP 2011-10-20 00:00:00 Completed Varicella (varivax)(chicken pox) 2011-10-20 00:00:00 Completed Meningococcal Polysaccharide (groups A, C, Y and W-135) conjugate vaccine (MCV4P) 2011-10-20 00:00:00 Completed [facility] Tdap 2011-10-20 00:00:00 Completed [facility] Varicella (varivax)(chicken pox) 2011-10-20 00:00:00 Completed [facility] HPV 2011-10-20 00:00:00 Completed [facility] Meningococcal Polysaccharide (groups A, C, Y and W-135) conjugate vaccine (MCV4P) 2011-10-20 00:00:00 Completed [facility] Tdap 2011-10-20 00:00:00 Completed [facility] Varicella (varivax)(chicken pox) 2011-10-20 00:00:00 Completed [facility] HPV 2011-10-20 00:00:00 Completed [facility] Meningococcal Polysaccharide (groups A, C, Y and W-135) conjugate vaccine (MCV4P) 2011-10-20 00:00:00 Completed [facility] H1n1 Vaccine 2009-06-02 00:00:00 Completed [facility] H1n1 Vaccine 2009-06-02 00:00:00 Completed H1n1 Vaccine 2009-06-02 00:00:00 Completed [facility] H1n1 Vaccine 2009-06-02 00:00:00 Completed [facility] H1n1 Vaccine 2009-06-02 00:00:00 Completed [facility] H1n1 Vaccine 2009-05-07 00:00:00 Completed [facility] H1n1 Vaccine 2009-05-07 00:00:00 Completed H1n1 Vaccine 2009-05-07 00:00:00 Completed [facility] H1n1 Vaccine 2009-05-07 00:00:00 Completed [facility] H1n1 Vaccine 2009-05-07 00:00:00 Completed [facility] Influenza Virus Vaccine 2008-05-28 00:00:00 Completed [facility] Influenza Virus Vaccine 2008-05-28 00:00:00 Completed Influenza Virus Vaccine 2008-05-28 00:00:00 Completed [facility] Influenza Virus Vaccine 2008-05-28 00:00:00 Completed [facility] Influenza Virus Vaccine 2008-05-28 00:00:00 Completed [facility] MMR 2003-09-08 00:00:00 Completed [facility] Polio (IPV/OPV) 2003-09-08 00:00:00 Completed [facility] DTAP 2003-09-08 00:00:00 Completed [facility] DTAP 2003-09-08 00:00:00 Completed [facility] MMR 2003-09-08 00:00:00 Completed [facility] Polio (IPV/OPV) 2003-09-08 00:00:00 Completed [facility] DTAP 2003-09-08 00:00:00 Completed MMR 2003-09-08 00:00:00 Completed Polio (IPV/OPV) 2003-09-08 00:00:00 Completed MMR 2003-09-08 00:00:00 Completed [facility] Polio (IPV/OPV) 2003-09-08 00:00:00 Completed [facility] DTAP 2003-09-08 00:00:00 Completed [facility] MMR 2003-09-08 00:00:00 Completed [facility] Polio (IPV/OPV) 2003-09-08 00:00:00 Completed [facility] DTAP 2003-09-08 00:00:00 Completed [facility] Varicella (varivax)(chicken pox) 2000-11-15 00:00:00 Completed [facility] DTAP 2000-11-15 00:00:00 Completed [facility] DTAP 2000-11-15 00:00:00 Completed [facility] HIB 4 Dose Schedule 2000-11-15 00:00:00 Completed [facility] MMR 2000-11-15 00:00:00 Completed [facility] Varicella (varivax)(chicken pox) 2000-11-15 00:00:00 Completed [facility] HIB 4 Dose Schedule 2000-11-15 00:00:00 Completed [facility] DTAP 2000-11-15 00:00:00 Completed HIB 4 Dose Schedule 2000-11-15 00:00:00 Completed MMR 2000-11-15 00:00:00 Completed Varicella (varivax)(chicken pox) 2000-11-15 00:00:00 Completed MMR 2000-11-15 00:00:00 Completed [facility] Varicella (varivax)(chicken pox) 2000-11-15 00:00:00 Completed [facility] DTAP 2000-11-15 00:00:00 Completed [facility] HIB 4 Dose Schedule 2000-11-15 00:00:00 Completed [facility] MMR 2000-11-15 00:00:00 Completed [facility] Varicella (varivax)(chicken pox) 2000-11-15 00:00:00 Completed [facility] DTAP 2000-11-15 00:00:00 Completed [facility] HIB 4 Dose Schedule 2000-11-15 00:00:00 Completed [facility] MMR 2000-11-15 00:00:00 Completed [facility] DTAP 2000-02-22 00:00:00 Completed [facility] Polio (IPV/OPV) 2000-02-22 00:00:00 Completed [facility] DTAP 2000-02-22 00:00:00 Completed [facility] HIB 4 Dose Schedule 2000-02-22 00:00:00 Completed [facility] Polio (IPV/OPV) 2000-02-22 00:00:00 Completed [facility] HIB 4 Dose Schedule 2000-02-22 00:00:00 Completed [facility] DTAP 2000-02-22 00:00:00 Completed HIB 4 Dose Schedule 2000-02-22 00:00:00 Completed Polio (IPV/OPV) 2000-02-22 00:00:00 Completed Polio (IPV/OPV) 2000-02-22 00:00:00 Completed [facility] DTAP 2000-02-22 00:00:00 Completed [facility] HIB 4 Dose Schedule 2000-02-22 00:00:00 Completed [facility] Polio (IPV/OPV) 2000-02-22 00:00:00 Completed [facility] DTAP 2000-02-22 00:00:00 Completed [facility] HIB 4 Dose Schedule 2000-02-22 00:00:00 Completed [facility] Polio (IPV/OPV) 1999 00:00:00 Completed [facility] DTAP 1999 00:00:00 Completed [facility] HIB 4 Dose Schedule 1999 00:00:00 Completed [facility] Hep B, Adol or Pedi Dosage 1999 00:00:00 Completed [facility] Polio (IPV/OPV) 1999 00:00:00 Completed [facility] HIB 4 Dose Schedule 1999 00:00:00 Completed [facility] DTAP 1999 00:00:00 Completed Hep B, Adol or Pedi Dosage 1999 00:00:00 Completed [facility] HIB 4 Dose Schedule 1999 00:00:00 Completed Hep B, Adol or Pedi Dosage 1999 00:00:00 Completed Polio (IPV/OPV) 1999 00:00:00 Completed Polio (IPV/OPV) 1999 00:00:00 Completed [facility] DTAP 1999 00:00:00 Completed [facility] HIB 4 Dose Schedule 1999 00:00:00 Completed [facility] Hep B, Adol or Pedi Dosage 1999 00:00:00 Completed [facility] Polio (IPV/OPV) 1999 00:00:00 Completed [facility] DTAP 1999 00:00:00 Completed [facility] HIB 4 Dose Schedule 1999 00:00:00 Completed [facility] DTAP 1999 00:00:00 Completed [facility] Hep B, Adol or Pedi Dosage 1999 00:00:00 Completed [facility] Polio (IPV/OPV) 1999 00:00:00 Completed [facility] DTAP 1999 00:00:00 Completed [facility] HIB 4 Dose Schedule 1999 00:00:00 Completed [facility] Hep B, Adol or Pedi Dosage 1999 00:00:00 Completed [facility] HIB 4 Dose Schedule 1999 00:00:00 Completed [facility] Polio (IPV/OPV) 1999 00:00:00 Completed [facility] Hep B, Adol or Pedi Dosage 1999 00:00:00 Completed [facility] DTAP 1999 00:00:00 Completed HIB 4 Dose Schedule 1999 00:00:00 Completed Hep B, Adol or Pedi Dosage 1999 00:00:00 Completed Polio (IPV/OPV) 1999 00:00:00 Completed Polio (IPV/OPV) 1999 00:00:00 Completed [facility] DTAP 1999 00:00:00 Completed [facility] HIB 4 Dose Schedule 1999 00:00:00 Completed [facility] Hep B, Adol or Pedi Dosage 1999 00:00:00 Completed [facility] Polio (IPV/OPV) 1999 00:00:00 Completed [facility] DTAP 1999 00:00:00 Completed [facility] DTAP 1999 00:00:00 Completed [facility] HIB 4 Dose Schedule 1999 00:00:00 Completed [facility] Hep B, Adol or Pedi Dosage 1999 00:00:00 Completed [facility] Hep B, Adol or Pedi Dosage 1999 00:00:00 Completed [facility] Hep B, Adol or Pedi Dosage 1999 00:00:00 Completed [facility] Hep B, Adol or Pedi Dosage 1999 00:00:00 Completed Hep B, Adol or Pedi Dosage 1999 00:00:00 Completed [facility] Hep B, Adol or Pedi Dosage 1999 00:00:00 Completed [facility] Vital Signs Vital Name Observation Time Observation Value Comments S ource BP Diastolic 2024-09-16 00:00:00 82 mm[Hg] [facility] Height 2024-09-16 00:00:00 70 [in_i] [facility] BP Systolic 2024-09-16 00:00:00 136 mm[Hg] [facility] BP Diastolic 2024-09-12 00:00:00 84 mm[Hg] [facility] Body Weight 2024-09-12 00:00:00 2896 [oz_av] [facility] BP Systolic 2024-09-12 00:00:00 136 mm[Hg] [facility] BMI (Body Mass Index) 2024-09-12 00:00:00 26 kg/m2 [facility] Height 2024-09-12 00:00:00 70 [in_i] [facility] Systolic blood pressure 2024-09-10 05:25:00 149 mm[Hg] [facility] Diastolic blood pressure 2024-09-10 05:25:00 89 mm[Hg] [facility] Heart rate 2024-09-10 05:25:00 85 /min [facility] Body temperature 2024-09-10 05:25:00 36.72 Hattie [facility] Respiratory rate 2024-09-10 05:25:00 16 /min [facility] Oxygen saturation in Arterial blood by Pulse oximetry 2024-09-10 05:25:00 97 /min [facility] Height 2024-07-08 00:00:00 70 [in_i] [facility] Body Weight 2024-07-08 00:00:00 2899.2 [oz_av] [facility] BP Diastolic 2024-07-08 00:00:00 71 mm[Hg] [facility] BP Systolic 2024-07-08 00:00:00 103 mm[Hg] [facility] BMI (Body Mass Index) 2024-07-08 00:00:00 26 kg/m2 [facility] BMI (Body Mass Index) 2024-05-06 00:00:00 27.5 kg/m2 [facility] BP Systolic 2024-05-06 00:00:00 130 mm[Hg] [facility] Height 2024-05-06 00:00:00 70 [in_i] [facility] Body Weight 2024-05-06 00:00:00 3072 [oz_av] [facility] BP Diastolic 2024-05-06 00:00:00 75 mm[Hg] [facility] Height 2023-10-05 00:00:00 70 [in_i] [facility] BMI (Body Mass Index) 2023-10-05 00:00:00 27.3 kg/m2 [facility] BP Diastolic 2023-10-05 00:00:00 84 mm[Hg] [facility] Body Weight 2023-10-05 00:00:00 3040 [oz_av] [facility] BP Systolic 2023-10-05 00:00:00 131 mm[Hg] [facility] BMI (Body Mass Index) 2023-03-29 00:00:00 27.6 kg/m2 [facility] BP Diastolic 2023-03-29 00:00:00 71 mm[Hg] [facility] BP Systolic 2023-03-29 00:00:00 125 mm[Hg] [facility] Body Weight 2023-03-29 00:00:00 3081.6 [oz_av] [facility] Height 2023-03-29 00:00:00 70 [in_i] [facility] BP Diastolic 2022-06-27 00:00:00 71 mm[Hg] [facility] Height 2022-06-27 00:00:00 70 [in_i] [facility] BMI (Body Mass Index) 2022-06-27 00:00:00 27.6 kg/m2 [facility] BP Systolic 2022-06-27 00:00:00 116 mm[Hg] [facility] Body Weight 2022-06-27 00:00:00 3078.4 [oz_av] [facility] BP Diastolic 2022-05-23 00:00:00 71 mm[Hg] [facility] Height 2022-05-23 00:00:00 70 [in_i] [facility] BMI (Body Mass Index) 2022-05-23 00:00:00 26.7 kg/m2 [facility] BP Systolic 2022-05-23 00:00:00 126 mm[Hg] [facility] Body Weight 2022-05-23 00:00:00 2976 [oz_av] [facility] BP Diastolic 2022-02-02 00:00:00 72 mm[Hg] [facility] Height 2022-02-02 00:00:00 70 [in_i] [facility] BMI (Body Mass Index) 2022-02-02 00:00:00 25.5 kg/m2 [facility] BP Systolic 2022-02-02 00:00:00 118 mm[Hg] [facility] Body Weight 2022-02-02 00:00:00 2844.8 [oz_av] [facility] BP Diastolic 2021-12-28 00:00:00 69 mm[Hg] [facility] Height 2021-12-28 00:00:00 70 [in_i] [facility] BMI (Body Mass Index) 2021-12-28 00:00:00 25 kg/m2 [facility] BP Systolic 2021-12-28 00:00:00 134 mm[Hg] [facility] Body Weight 2021-12-28 00:00:00 2790.4 [oz_av] [facility] BP Diastolic 2021-08-25 00:00:00 78 mm[Hg] [facility] Height 2021-08-25 00:00:00 70 [in_i] [facility] BMI (Body Mass Index) 2021-08-25 00:00:00 28.5 kg/m2 [facility] BP Systolic 2021-08-25 00:00:00 118 mm[Hg] [facility] Body Weight 2021-08-25 00:00:00 3180.8 [oz_av] [facility] BP Diastolic 2021-03-12 00:00:00 75 mm[Hg] [facility] Height 2021-03-12 00:00:00 70 [in_i] [facility] BMI (Body Mass Index) 2021-03-12 00:00:00 27.4 kg/m2 [facility] BP Systolic 2021-03-12 00:00:00 126 mm[Hg] [facility] Body Weight 2021-03-12 00:00:00 3059.2 [oz_av] [facility] BP Diastolic 2021-02-02 00:00:00 79 mm[Hg] [facility] Height 2021-02-02 00:00:00 70 [in_i] [facility] BMI (Body Mass Index) 2021-02-02 00:00:00 27.8 kg/m2 [facility] BP Systolic 2021-02-02 00:00:00 121 mm[Hg] [facility] Body Weight 2021-02-02 00:00:00 3097.6 [oz_av] [facility] BP Diastolic 2020-07-28 00:00:00 73 mm[Hg] [facility] Height 2020-07-28 00:00:00 70 [in_i] [facility] BMI (Body Mass Index) 2020-07-28 00:00:00 29.6 kg/m2 [facility] BP Systolic 2020-07-28 00:00:00 132 mm[Hg] [facility] Body Weight 2020-07-28 00:00:00 3302.4 [oz_av] [facility] Systolic blood pressure 2020-07-22 22:41:00 126 mm[Hg] [facility] Diastolic blood pressure 2020-07-22 22:41:00 82 mm[Hg] [facility] Heart rate 2020-07-22 22:35:00 86 /min [facility] Body temperature 2020-07-22 22:35:00 36.17 Hattie [facility] Respiratory rate 2020-07-22 22:35:00 18 /min [facility] Body height 2020-07-22 22:35:00 175.3 cm [facility] Body weight 2020-07-22 22:35:00 90.719 kg [facility] BMI 2020-07-22 22:35:00 29.53 kg/m2 [facility] Oxygen saturation in Arterial blood by Pulse oximetry 2020-07-22 22:35:00 100 /min [facility] Systolic blood pressure 2019-09-19 01:04:00 149 mm[Hg] [facility] Diastolic blood pressure 2019-09-19 01:04:00 90 mm[Hg] [facility] Heart rate 2019-09-19 01:04:00 94 /min [facility] Body temperature 2019-09-19 01:04:00 36.39 Hattie [facility] Respiratory rate 2019-09-19 01:04:00 16 /min [facility] Body weight 2019-09-19 01:04:00 81.647 kg [facility] Oxygen saturation in Arterial blood by Pulse oximetry 2019-09-19 01:04:00 97 /min [facility] Procedures Procedure Date / Time Performed Performing Clinicia n Source XR FOOT 3+ VW RIGHT 2024-09-10 04:23:02 Carlos A Orourke [facility] TDAP VACCINE, >11 YRS, IM 2020-07-22 22:49:26 Irma Torres [facility] NOTICE OF PRIVACY PRACTICES 2019-09-19 00:58:16 Doctor Unassigned, [place] [facility] CONSENT/REFUSAL FOR DIAGNOSIS AND TREATMENT 2019-09-19 00:57:50 Doctor Unassigned, [place] [facility] Encounters Start Date/Time End Date/Time Encounter Type Admission Type Attending [facility] Facility Care Department Encounter ID Source 2024-09-16 00:00:00 2024-09-16 00:00:00 Jacey Camargo APRN, MSN, VISUAL JOURNALIST-BC: [address] [place] [address] , Ph. [facility] [id number] [facility] 2024-09-12 00:00:00 2024-09-12 00:00:00 Jacey Camargo APRN, MSN, VISUAL JOURNALIST-BC: [address] [facility] [place] [address] , Ph. [facility] [id number] [facility] 2024-09-09 21:57:00 2024-09-10 00:29:00 Emergency CARLOS A WEBB ERICCA [facility] ERT [id number] [facility] 2024-09-09 21:57:00 2024-09-10 00:29:00 Emergency Carlos A Orourke [facility] [id number] [facility] 2024-07-08 00:00:00 2024-07-08 00:00:00 Jacey Camargo APRN, MSN, VISUAL JOURNALIST-BC: [address] [place] [address], [address], [place] [address] , Ph. [facility] 90 120 [facility] 2024-05-06 00:00:00 2024-05-06 00:00:00 Jacey Camargo APRN, MSN, [facility]: [address] [place] [address], [address] [place] [address] , Ph. [facility] 118 [facility] 2023-10-05 00:00:00 2023-10-05 00:00:00 Jacey Camargo APRN, MSN, [facility]: [address] [place] [address], [address] [place] [address] , Ph. [facility] 418 [facility] 2023-07-25 00:00:00 2023-07-25 00:00:00 Outpatient L_Pena [facility] [id number] [facility] 2023-06-20 00:00:00 2023-06-20 00:00:00 Outpatient L_Pena [facility] [id number] [facility] 2023-05-16 00:00:00 2023-05-16 00:00:00 Outpatient L_Pena [facility] [id number] [facility] 2023-04-11 00:00:00 2023-04-11 00:00:00 Outpatient L_Pena [facility] [id number] [facility] 2023-04-10 00:00:00 2023-04-10 00:00:00 Outpatient L_Pena [facility] [id number] [facility] 2023-03-30 00:00:00 2023-03-30 00:00:00 Outpatient L_Pena [facility] [id number] [facility] 2023-03-29 00:00:00 2023-03-29 00:00:00 Outpatient L_Pena [facility] [id number] [facility] 2023-03-29 00:00:00 2023-03-29 00:00:00 Jacey Camargo APRN, MSN, [facility]: [address] [place] [address], [address] [place] [address] , Ph. [facility] [id number] [facility] 2022-06-27 00:00:00 2022-06-27 00:00:00 Outpatient L_Pena [facility] [id number] [facility] 2022-06-27 00:00:00 2022-06-27 00:00:00 Jacey Camargo APRN, MSN, [facility]: [address] [place] [address], [address] [place] [address] , Ph. [facility] [id number] [facility] 2022-05-25 00:00:00 2022-05-25 00:00:00 Outpatient L_Pena [facility] [id number] [facility] 2022-05-24 00:00:00 2022-05-24 00:00:00 Outpatient L_Pena [facility] [id number] [facility] 2022-05-23 00:00:00 2022-05-23 00:00:00 Outpatient L_Pena [facility] [id number] [facility] 2022-05-23 00:00:00 2022-05-23 00:00:00 Jacey Camargo APRN, MSN, [facility]: [address] [place] [address], [address] [place] [address] , Ph. [facility] [id number] [facility] 2022-02-02 00:00:00 2022-02-02 00:00:00 Outpatient L_Collina [facility] [id number] [facility] 2022-02-02 00:00:00 2022-02-02 00:00:00 Jacey Camargo APRN, MSN, [facility]: [address] [facility], [address], [place] [address] , Ph. [facility] [id number] [facility] 2022-02-02 00:00:00 2022-02-02 00:00:00 Outpatient Jacey Camargo [facility] [id number] 2022-02-02 00:00:00 2022-02-02 00:00:00 Outpatient Jacey Camargo [facility] [id number] 2022-02-02 00:00:00 2022-02-02 00:00:00 Outpatient Jacey Camargo [facility] [id number] 2021-12-28 10:13:00 2021-12-28 10:13:00 Outpatient WATERS_S [facility] [id number] [facility] 2021-12-28 00:00:00 2021-12-28 00:00:00 Jacey Camargo APRN, MSN, [facility]: [address] [facility] [facility], [address], [place] [address] , Ph. [facility] [id number] [facility] 2021-12-28 00:00:00 2021-12-28 00:00:00 Outpatient Jacey Camargo [facility] [id number] 2021-12-28 00:00:00 2021-12-28 00:00:00 Outpatient Jacey Camargo [facility] [id number] 2021-12-28 00:00:00 2021-12-28 00:00:00 Outpatient Jacey Camargo [facility] [id number] 2021-08-25 05:46:00 2021-08-25 05:46:00 Outpatient WATERS_S [facility] [id number] [facility] 2021-08-25 00:00:00 2021-08-25 00:00:00 [facility]: [address] [place] [address], [address] [address] , Ph. [facility] [id number] [facility] 2021-08-25 00:00:00 2021-08-25 00:00:00 Outpatient Ryanne Garcia [facility] [id number] 2021-08-24 02:12:00 2021-08-24 02:12:00 Outpatient WATERS_S [facility] [id number] [facility] 2021-07-12 04:20:00 2021-07-12 04:20:00 Outpatient WATERS_S [facility] [id number] [facility] 2021-03-15 05:36:00 2021-03-15 05:36:00 Outpatient SCHAUBROECK _L [facility] [id number] [facility] 2021-03-12 12:42:00 2021-03-12 12:42:00 Outpatient SCHAUBRO[place]K _L [facility] [id number] [facility] 2021-03-12 00:00:00 2021-03-12 00:00:00 Keshia paul [facility]-: [address] [facility] [address] [facility] [facility], [address], [place] [address] , Ph. [facility] [id number] [facility] 2021-03-12 00:00:00 2021-03-12 00:00:00 Outpatient Keshia Jurado [facility] [id number] 2021-02-22 06:21:00 2021-02-22 06:21:00 Outpatient [place]AU[place]K _L [facility] [id number] [facility] 2021-02-22 06:21:00 2021-02-22 06:21:00 Outpatient [place]K _L [facility] [id number] [facility] 2021-02-15 12:08:00 2021-02-15 12:08:00 Outpatient SCHAU[place]K _L [facility] [id number] [facility] 2021-02-02 11:34:00 2021-02-02 11:34:00 Outpatient SCHAUBROECK _L [facility] [id number] [facility] 2021-02-02 00:00:00 2021-02-02 00:00:00 Outpatient Keshia Jurado [facility] [id number] 2021-02-02 00:00:00 2021-02-02 00:00:00 Outpatient Keshia Jurado [facility] [id number] 2021-02-02 00:00:00 2021-02-02 00:00:00 Outpatient Keshia Jurado [facility] [id number] 2021-02-02 00:00:00 2021-02-02 00:00:00 REGINE McnealC: [address] [place] [address], [address] [address] , Ph. [facility] [id number] [facility] 2020-12-16 04:35:00 2020-12-16 04:35:00 Outpatient SCHAUBRO[place]K _L [facility] [id number] [facility] 2020-08-22 06:48:00 2020-08-22 06:48:00 Outpatient SCHAU[place]K _L [facility] [id number] [facility] 2020-07-28 02:28:00 2020-07-28 02:28:00 Outpatient SCHAUBROECK _L [facility] [id number] [facility] 2020-07-28 00:00:00 2020-07-28 00:00:00 Outpatient Keshia Jurado [facility] [id number] 2020-07-28 00:00:00 2020-07-28 00:00:00 REGINE McnealC: [address] [place] [address], [address] [place] [address] , Ph. [facility] [id number] [facility] 2020-07-24 01:03:00 2020-07-24 01:03:00 Outpatient SCHAUBRO[place]K _L [facility] [id number] [facility] 2020-07-23 04:40:00 2020-07-23 04:40:00 Outpatient SCHAUBRO[place]K _L [facility] [id number] [facility] 2020-07-22 16:22:44 2020-07-22 16:42:44 Urgent Care Irma Torres Leslie A [facility] [address] ..114 [id number] [facility] 2020-07-22 16:40:00 2020-07-22 16:40:00 Outpatient [facility] [id number] [facility] 2020-07-15 17:20:59 2020-07-15 17:40:59 Laboratory Only Lab, Adc Fam Pob I Irma Torres [facility] [address] ..114 [id number] [facility] 2020-06-19 01:02:00 2020-06-19 01:02:00 Outpatient SCHAUBROECK _L [facility] [id number] [facility] 2020-06-19 01:02:00 2020-06-19 01:02:00 Outpatient SCHAUBROECK _L [facility] [id number] [facility] 2019-09-18 20:06:13 2019-09-18 20:21:00 Emergency Drake Siuelizabeth Lopez [facility] .[id number] [facility] 2019-09-18 20:06:13 2019-09-18 20:06:13 Emergency X SOSA [facility] ERT [id number] [facility] 2019-09-18 00:00:00 2019-09-18 00:00:00 Orders Only Doctor Unassigned, [place] [facility] 1..114 [id number] [facility] Results Test Description Test Time Test Comments Results Resul t Comments Source XR Foot 3+ vw right 2024-09-10 04:25:52 XR FOOT 3+ VW RIGHT HISTORY: ?plantar pain to distal 1st metatarsal after removing a splint,eval for fx, retained FB COMPARISON: ?none available. [facility] Notes Date/Time Note Provider Source 2024-09-10 00:28:10 Pt given printed and verbal discharge instructions regarding cellulitis of right foot. Prescription x2 sent to pharmacy Discussed ibuprofen and to take with food to avoid GI distress. Discussed antibiotic therapy and to take until all completed unless adverse reaction occurs - if occurs, discontinue medication and follow up with pcp/seek medical attention Pt verbalized understanding of instructions, pt awake alert oriented, resp reg unlabored, skin w/d, color appropriate for race, moves all ext well,pt encouraged to follow up with pcp. Advised to seek medical attention for new/prolonged/worsening of symptoms. No adverse reaction to meds given in ER noted upon discharge Awake, alert oriented, resp reg unlabored, skin w/d, pt leaving ambulatory using crutches, in no apparent distress. T [facility] 2024-09-09 21:54:26 Pt arrived ambulatory without assist. Pt c/o swelling to right foot after removing splinters from his foot on Monday. [facility][NOTE 2] Suzy Lee RN [facility]
--- NOTE | 2024-09-17 16:04 | EDPHYS ---
Physician Documentation [facility] Name: Salvador Salazar Age: 24 yrs Sex: Male : 2000 Arrival Date: 09/17/2024 Time: 15:26 Bed Waiting Private MD: ED Physician Steffen Castellon HPI: 09/17 16:00 This 24 yrs old Male presents to ER via Unassigned with complaints of Eye Swelling. kb 16:00 Pt is a 24 year old male who presents for swelling to left eye that started today. kb Reports it was worse earlier today, but got better after allergy medication. Denies any visual deficits. . Historical: - Allergies: 16:07 No Known Allergies; cm10 - PMHx: 16:07 depressive disorder; cm10 - Immunization history:: Adult Immunizations up to date. - Infectious Disease History:: Denies. - Social history:: Smoking status: Reported history of juuling and/or vaping. ROS: 16:00 Constitutional: As per HPI kb Exam: 16:00 Constitutional: This is a well developed, well nourished patient who is awake, alert, kb and in no acute distress. Head/Face: Normocephalic, atraumatic. Cardiovascular: Regular rate Respiratory: Respirations even and unlabored. No increased work of breathing. Talking in full sentences Skin: Warm, dry with normal turgor. Normal color. MS/ Extremity: Pulses equal, no cyanosis. Neurovascular intact. Full, normal range of motion. Neuro: Awake and alert, GCS 15, oriented to person, place, time, and situation. 16:00 Eyes: Periorbital structures: appear normal, Pupils: equal, round, and reactive to light and accomodation, Extraocular movements: intact throughout, Conjunctiva: chemosis, that is moderate, in right eye, Vital Signs: 16:08 BP 118 / 91; Pulse 78; Resp 15; Temp 98.7; Pulse Ox 95% ; Weight 81.65 kg; Height 5 ft. cm10 9 in. ; Pain 1/10; 16:08 Body Mass Index 26.58 (81.65 kg, 175.26 cm) cm10 16:08 Pain Scale: Adult cm10 MDM: 15:46 Medical Screening Exam initiated kb 16:00 Data reviewed: vital signs, nurses notes. kb 16:02 Differential diagnosis: Foreign body in chemosis. Historians other than the Patient: adama Spouse/Significant Other: significant other. Counseling: I had a detailed discussion with the patient and/or guardian regarding the historical points, exam findings, and any diagnostic results supporting the discharge/admit diagnosis, the need for outpatient follow up, an opthalmologist, to return to the emergency department if symptoms worsen or persist or if there are any questions or concerns that arise at home. Administered Medications: No medications were administered Disposition Summary: 09/17/24 16:03 Discharge Ordered Notes: Location: Home kb Condition: Stable kb Diagnosis - Chemosis, left kb Followup: kb - With: Emergency Department - When: As needed - Reason: Worsening of condition Followup: kb - With: Private Physician - When: 2 - 3 days - Reason: Recheck today's complaints, Continuance of care, Re-evaluation by your physician Discharge Instructions: - Discharge Summary Sheet kb - Allergic Conjunctivitis, Adult, [id number] kb Forms: - Medication Reconciliation Form kb - Antibiotic Education kb - Prescription Opioid Use kb - Patient Portal Instructions kb - Leadership Thank You Letter kb Prescriptions: - Vigamox 0.5 % Ophthalmic Drops - instill 1 drop OPHTHALMIC route every 8 hours for 7 days; 5 milliliter; kb Refills: 0, Product Selection Permitted Signatures: Gema Masterson FNP-C FNP-Claudia Peck, RN RN cm10
--- NOTE | 2024-09-17 16:14 | ER ---
Nurse's Notes [facility] Name: Salvador Salazar Age: 24 yrs Sex: Male : 2000 Arrival Date: 09/17/2024 Time: 15:26 Bed Waiting Private MD: Diagnosis: Chemosis, left Presentation: 09/17 16:08 Chief complaint: Patient states: left eye pain onset today. tearing and swelling noted. cm10 Coronavirus screen: Client denies travel out of the [place] in the last 14 days. Ebola Screen: Patient denies travel to an Ebola-affected area in the 21 days before illness onset. Initial Sepsis Screen: Does the patient meet any 2 criteria? No. Patient's initial sepsis screen is negative. Does the patient have a suspected source of infection? No. Patient's initial sepsis screen is negative. Risk Assessment: Do you want to hurt yourself or someone else? Patient reports no desire to harm self or others. Onset of symptoms was September 17, 2024. 16:08 Method Of Arrival: Ambulatory cm10 16:08 Acuity: FELICITAS 4 cm10 Triage Assessment: 16:07 General: Appears uncomfortable, Behavior is calm, cooperative. Pain: Complains of pain cm10 in left eye. EENT: Eyes are tearing on left eye. Neuro: No deficits noted. Level of Consciousness is awake, alert, obeys commands, Oriented to person, place, time, situation, Appropriate for age. Respiratory: No deficits noted. Airway is patent Respiratory effort is even, unlabored, Respiratory pattern is regular, symmetrical. Historical: - Allergies: 16:07 No Known Allergies; cm10 - PMHx: 16:07 depressive disorder; cm10 - Immunization history:: Adult Immunizations up to date. - Infectious Disease History:: Denies. - Social history:: Smoking status: Reported history of juuling and/or vaping. Screenin:08 [facility] ED Fall Risk Assessment (Adult) History of falling in the last 3 months, cm10 including since admission No falls in past 3 months (0 pts) Confusion or Disorientation No (0 pts) Intoxicated or Sedated No (0 pts) Impaired Gait No (0 pts) Mobility Assist Device Used No (0 pt) Altered Elimination No (0 pt) Score/Fall Risk Level 0 - 2 = Low Risk Oriented to surroundings, Maintained a safe environment, Hourly rounding (assess needs \T\ fall precautionary measures) done. Abuse screen: Denies threats or abuse. Denies injuries from another. Nutritional screening: No deficits noted. Tuberculosis screening: No symptoms or risk factors identified. Vital Signs: 16:08 BP 118 / 91; Pulse 78; Resp 15; Temp 98.7; Pulse Ox 95% ; Weight 81.65 kg; Height 5 ft. cm10 9 in. ; Pain 1/10; 16:08 Body Mass Index 26.58 (81.65 kg, 175.26 cm) cm10 16:08 Pain Scale: Adult cm10 ED Course: 15:28 Patient arrived in ED. im 15:46 [facility]C [facility] kb 15:46 Steffen Castellon MD is Attending Physician. kb 16:08 Triage completed. cm10 16:08 Arm band placed on right wrist. Patient placed in waiting room. cm10 16:08 Patient has correct armband on for positive identification. Provided Education on: cm10 follow-up instructions. 16:08 No provider procedures requiring assistance completed. Patient did not have IV access cm10 during this emergency room visit. Administered Medications: No medications were administered Medication: 16:08 VIS not applicable for this client. cm10 Outcome: 16:03 Discharge ordered by . kb 16:08 Discharged to home ambulatory, with significant other, cm10 16:08 Condition: good 16:08 Discharge instructions given to patient, Instructed on discharge instructions, follow up and referral plans. medication usage, Demonstrated understanding of instructions, follow-up care, medications, Prescriptions given X 1, 16:13 Patient left the ED. cm10 Signatures: Gema Masterson FNP-C FNP-Ckb Mendoza, Itzel im Martinez, Clarissa, RN RN cm10
[2024-09-17 16:22] VITALS: BP 118/91; TEMP 98.7; O2SAT 95
== END 2024-09-17 16:13 | disposition home or self-care (01) ==
LOC: ER 15:26
DX: H11.422 Conjunctival edema, left eye (principal)
CPT/HCPCS: 99283

== ENCOUNTER 2024-09-27 15:35 | Emergency (ER) | payer SELFPAY ==
--- OUTSIDE RECORDS SUMMARY | 2024-09-27 15:40 | XMS REPORT | Continuity of Care Document ---
Author Name Unknown Address [address] [facility]. [address] [place] [address] [facility] Address [address] [facility] [place] [address] Care Team Providers Care Retail Salesworker Name Role Phone PCP, PATIENT DOES NOT HAVE A Primary Care Physic paige Unavailable CARLOS A OROURKE Attending Clinician Unavailable CARLOS A OROURKE Attending Clinician Unavailable Carlos A Burnette Attending Clinician [phone] L_Raman Attending Clinician Unavailable Jacey Camargo Attending Clinician [phone] WATERS_S Attending Clinician Unavailable Ryanne Garcia Attending Clinician [phone] SCHAUBROTANVI_Abby Attending Clinician Unavailable Keshia Jurado Attending Clinician [phone] Irma Mcmillan Attending Clinician [phone] Keisha Putnam Attending Clinician [phone] KEISHA MOSER Attending Clinician Unavailable Lab, Adc Fam Pob I Attending Clinician Unavailab Sosa Dos Santos Attending Clinician [phone] SOSA [facility] Attending Clinician Unavailable Doctor Unassigned, Crowell Attending Clinician U navailable CARLOS A ROOURKE Admitting Clinician Unavailable L_Pena Admitting Clinician Unavailable WATERS_S Admitting Clinician Unavailable CATALINAROTANVI_Abby Admitting Clinician Unavailable Payers Payer Name Policy Type Policy Number Effective Date Expirati on Date Source [facility] [id number] 2018 00:00:00 [place] [id number] 2018 00:00:00 Problems Condition Name Condition Details Condition Category Status Onset Date Resolution Date Last Treatment Date Treating Clinician Comments Source Foreign body in skin of foot Foreign Body in Skin of Foot Problem Active 08 00:00: 00 [facility] Pain in right foot Pain in Right Foot Problem Active 06-27 00:00: 00 [facility] Strain of muscle of right foot Strain of Muscle of Right Foot Problem Active 06-27 00:00: 00 [facility] Low back pain Low Back Pain Problem Active 2021-06 00:00: 00 [facility] 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 and Depressive Disorder Problem Active 2019-06 00:00: 00 [facility] Anxiety Anxiety Disease Active 02-27 00:00: 00 [facility] ADD (attention deficit disorder) ADD (attention deficit disorder) Disease Active 02-27 00:00: 00 [facility] Allergies, Adverse Reactions, Alerts Allergy Name Allergy Type Status Severity Reaction(s) Onset Date Inactive Date Treating Clinician Comments Source NO KNOWN ALLERGIE S Drug Class Active [facility] Social History Social Habit Start Date Stop Date Quantity Comments [facility]2 (event) Not sure [facility] Alcoholic beverage intake 2019-09-18 00:00:00 2019-09-18 00:00:00 0 /d [facility] History of Social function 2019-09-18 00:00:00 2019-09-18 00:00:00 [facility] Alcohol intake 2019-09-18 00:00:00 2019-09-18 00:00:00 Current drinker of alcohol (finding) [facility] Tobacco use and exposure 2014-08-13 00:00:00 2014-08-13 00:00:00 Smokeless tobacco non-user [facility] Sex assigned at 1999 00:00:00 1999 00:00:00 [facility] Smoking Status Start Date Stop Date Source Former Smoker [facility] Never smoked tobacco [facility] Medications Ordered Medication Name Filled Medication [...] (ED), Restricted use approved by: ED PROVIDER [facility] clindamycin 300 mg capsule 09-10 00:00: 00 09-18 04:59 :00 Yes [id number] 300mg Take 1 capsule by mouth 4 (four) times daily for 7 days. [facility] FLUoxetine (PROZAC) 10 mg capsule 07-22 22:39: 20 Yes 10mg Take 10 mg by mouth daily. [facility] FLUoxetine (PROZAC) 10 mg capsule 07-22 16:39: 20 Yes 10mg Take 10 mg by mouth daily. [facility] QUEtiapine (SEROQUEL) 100 mg tablet 10-08 00:00: 00 07-22 00:00 :00 No [id number] 100mg Take 1 tablet by mouth at bedtime. [facility] cetirizine 10 mg tablet Take 1 tablet every day by oral route. cetirizine 10 mg tablet Take 1 tablet every day by oral route. No 1 Q1D cetirizine 10 mg tablet Take 1 tablet every day by oral route. [facility] fluoxetine 20 mg capsule TAKE 1 CAPSULE BY MOUTH ONCE DAILY fluoxetine 20 mg capsule TAKE 1 CAPSULE BY MOUTH ONCE DAILY No 1capsul e(s) Q1D fluoxetine 20 mg capsule TAKE 1 CAPSULE BY MOUTH ONCE DAILY [facility] naproxen sodium 550 mg tablet TAKE 1 TABLET BY MOUTH EVERY 12 HOURS NEEDED FOR PAIN naproxen sodium 550 mg tablet TAKE 1 TABLET BY MOUTH EVERY 12 HOURS NEEDED FOR PAIN No naproxen sodium 550 mg tablet TAKE 1 TABLET BY MOUTH EVERY 12 HOURS NEEDED FOR PAIN [facility] ibuprofen 800 mg tablet TAKE 1 TABLET BY MOUTH THREE TIMES DAILY NEEDED FOR PAIN (SCALE OF 4-6) ibuprofen 800 mg tablet TAKE 1 TABLET BY MOUTH THREE TIMES DAILY NEEDED FOR PAIN (SCALE OF 4-6) No ibuprofen 800 mg tablet TAKE 1 TABLET BY MOUTH THREE TIMES DAILY NEEDED FOR PAIN (SCALE OF 4-6) [facility] mupirocin 2 % topical ointment APPLY A SMALL AMOUNT TO THE AFFECTED AREA BY TOPICAL ROUTE 2-3 TIMES PER DAY mupirocin 2 % topical ointment APPLY A SMALL AMOUNT TO THE AFFECTED AREA BY TOPICAL ROUTE 2-3 TIMES PER DAY No mupirocin 2 % topical ointment APPLY A SMALL AMOUNT TO THE AFFECTED AREA BY TOPICAL ROUTE 2-3 TIMES PER DAY [facility] moxifloxaci n 0.5 % eye drops INSTILL 1 DROP INTO AFFECTED EYE(S) EVERY 8 HOURS FOR 7 DAYS moxifloxaci n 0.5 % eye drops INSTILL 1 DROP INTO AFFECTED EYE(S) EVERY 8 HOURS FOR 7 DAYS No moxifloxac in 0.5 % eye drops INSTILL 1 DROP INTO AFFECTED EYE(S) EVERY 8 HOURS FOR 7 DAYS [facility] Immunizations Ordered Immunization Name Filled Immunization Name Date Status Comments Source TD 2020-07-22 00:00:[address] [facility] TDAP 2020-07-22 00:00:[address] [facility] Influenza Virus Vaccine Quad IM 3+ 2014-04-15 00:00:[address] [facility] Influenza Virus Vaccine Quad IM + 2014-04-15 00:00:[address] [facility] Influenza Virus Vaccine Quad IM 3+ 2014-04-15 00:00:[address] [facility] Influenza Virus Vaccine Quad IM 3+ 2014-04-15 00:00:[address] [facility] Influenza Virus Vaccine Quad IM + 2014-04-15 00:00:[address] [facility] HPV 2014-01-22 00:00:[address] [facility] HPV 2014-01-22 00:00:[address] [facility] HPV 2014-01-22 00:00:00 Completed HPV 2014-01-22 00:00:[address] [facility] HPV 2014-01-22 00:00:[address] [facility] TDAP 2011-10-20 00:00:[address] [facility] Varicella (varivax)(chicken pox) 2011-10-20 00:00:[address] [facility] HPV 2011-10-20 00:00:[address] [facility] Meningococcal Polysaccharide (groups A, C, Y and W-135) conjugate vaccine (MCV4P) 2011-10-20 00:00:[address] [facility] TDAP 2011-10-20 00:00:[address] [facility] Varicella (varivax)(chicken pox) 2011-10-20 00:00:[address] [facility] HPV 2011-10-20 00:00:[address] [facility] HPV 2011-10-20 00:00:00 Completed Meningococcal Polysaccharide (groups A, C, Y and W-135) conjugate vaccine (MCV4P) 2011-10-20 00:00:00 Completed TDAP 2011-10-20 00:00:00 Completed Varicella (varivax)(chicken pox) 2011-10-20 00:00:00 Completed Meningococcal Polysaccharide (groups A, C, Y and W-135) conjugate vaccine (MCV4P) 2011-10-20 00:00:[address] [facility] Tdap 2011-10-20 00:00:[address] [facility] Varicella (varivax)(chicken pox) 2011-10-20 00:00:[address] [facility] HPV 2011-10-20 00:00:[address] [facility] Meningococcal Polysaccharide (groups A, C, Y and W-135) conjugate vaccine (MCV4P) 2011-10-20 00:00:[address] [facility] Tdap 2011-10-20 00:00:[address] [facility] Varicella (varivax)(chicken pox) 2011-10-20 00:00:[address] [facility] HPV 2011-10-20 00:00:[address] [facility] Meningococcal Polysaccharide (groups A, C, Y and W-135) conjugate vaccine (MCV4P) 2011-10-20 00:00:[address] [facility] H1n1 Vaccine 2009-06-02 00:00:[address] [facility] H1n1 Vaccine 2009-06-02 00:00:00 Completed H1n1 Vaccine 2009-06-02 00:00:[address] [facility] H1n1 Vaccine 2009-06-02 00:00:[address] [facility] H1n1 Vaccine 2009-06-02 00:00:[address] [facility] H1n1 Vaccine 2009-05-07 00:00:[address] [facility] H1n1 Vaccine 2009-05-07 00:00:00 Completed H1n1 Vaccine 2009-05-07 00:00:[address] [facility] H1n1 Vaccine 2009-05-07 00:00:[address] [facility] H1n1 Vaccine 2009-05-07 00:00:[address] [facility] Influenza Virus Vaccine 2008-05-28 00:00:[address] [facility] Influenza Virus Vaccine 2008-05-28 00:00:00 Completed Influenza Virus Vaccine 2008-05-28 00:00:[address] [facility] Influenza Virus Vaccine 2008-05-28 00:00:[address] [facility] Influenza Virus Vaccine 2008-05-28 00:00:[address] [facility] MMR 2003-09-08 00:00:[address] [facility] Polio (IPV/OPV) 2003-09-08 00:00:[address] [facility] DTAP 2003-09-08 00:00:[address] [facility] DTAP 2003-09-08 00:00:[address] [facility] MMR 2003-09-08 00:00:[address] [facility] Polio (IPV/OPV) 2003-09-08 00:00:[address] [facility] DTAP 2003-09-08 00:00:00 Completed MMR 2003-09-08 00:00:00 Completed Polio (IPV/OPV) 2003-09-08 00:00:00 Completed MMR 2003-09-08 00:00:[address] [facility] Polio (IPV/OPV) 2003-09-08 00:00:[address] [facility] DTAP 2003-09-08 00:00:[address] [facility] MMR 2003-09-08 00:00:[address] [facility] Polio (IPV/OPV) 2003-09-08 00:00:[address] [facility] DTAP 2003-09-08 00:00:[address] [facility] Varicella (varivax)(chicken pox) 2000-11-15 00:00:[address] [facility] DTAP 2000-11-15 00:00:[address] [facility] DTAP 2000-11-15 00:00:[address] [facility] HIB 4 Dose Schedule 2000-11-15 00:00:[address] [facility] MMR 2000-11-15 00:00:[address] [facility] Varicella (varivax)(chicken pox) 2000-11-15 00:00:[address] [facility] HIB 4 Dose Schedule 2000-11-15 00:00:[address] [facility] DTAP 2000-11-15 00:00:00 Completed HIB 4 Dose Schedule 2000-11-15 00:00:00 Completed MMR 2000-11-15 00:00:00 Completed Varicella (varivax)(chicken pox) 2000-11-15 00:00:00 Completed MMR 2000-11-15 00:00:[address] [facility] Varicella (varivax)(chicken pox) 2000-11-15 00:00:[address] [facility] DTAP 2000-11-15 00:00:[address] [facility] HIB 4 Dose Schedule 2000-11-15 00:00:[address] [facility] MMR 2000-11-15 00:00:[address] [facility] Varicella (varivax)(chicken pox) 2000-11-15 00:00:[address] [facility] DTAP 2000-11-15 00:00:[address] [facility] HIB 4 Dose Schedule 2000-11-15 00:00:[address] [facility] MMR 2000-11-15 00:00:[address] [facility] DTAP 2000-02-22 00:00:[address] [facility] Polio (IPV/OPV) 2000-02-22 00:00:[address] [facility] DTAP 2000-02-22 00:00:[address] [facility] HIB 4 Dose Schedule 2000-02-22 00:00:[address] [facility] Polio (IPV/OPV) 2000-02-22 00:00:[address] [facility] HIB 4 Dose Schedule 2000-02-22 00:00:[address] [facility] DTAP 2000-02-22 00:00:00 Completed HIB 4 Dose Schedule 2000-02-22 00:00:00 Completed Polio (IPV/OPV) 2000-02-22 00:00:00 Completed Polio (IPV/OPV) 2000-02-22 00:00:[address] [facility] DTAP 2000-02-22 00:00:[address] [facility] HIB 4 Dose Schedule 2000-02-22 00:00:[address] [facility] Polio (IPV/OPV) 2000-02-22 00:00:[address] [facility] DTAP 2000-02-22 00:00:[address] [facility] HIB 4 Dose Schedule 2000-02-22 00:00:[address] [facility] Polio (IPV/OPV) 1999 00:00:[address] [facility] DTAP 1999 00:00:[address] [facility] HIB 4 Dose Schedule 1999 00:00:[address] [facility] Hep B, Adol or Pedi Dosage 1999 00:00:[address] [facility] Polio (IPV/OPV) 1999 00:00:[address] [facility] HIB 4 Dose Schedule 1999 00:00:[address] [facility] DTAP 1999 00:00:00 Completed Hep B, Adol or Pedi Dosage 1999 00:00:[address] [facility] HIB 4 Dose Schedule 1999 00:00:00 Completed Hep B, Adol or Pedi Dosage 1999 00:00:00 Completed Polio (IPV/OPV) 1999 00:00:00 Completed Polio (IPV/OPV) 1999 00:00:[address] [facility] DTAP 1999 00:00:[address] [facility] HIB 4 Dose Schedule 1999 00:00:[address] [facility] Hep B, Adol or Pedi Dosage 1999 00:00:[address] [facility] Polio (IPV/OPV) 1999 00:00:[address] [facility] DTAP 1999 00:00:[address] [facility] HIB 4 Dose Schedule 1999 00:00:[address] [facility] DTAP 1999 00:00:[address] [facility] Hep B, Adol or Pedi Dosage 1999 00:00:[address] [facility] Polio (IPV/OPV) 1999 00:00:[address] [facility] DTAP 1999 00:00:[address] [facility] HIB 4 Dose Schedule 1999 00:00:[address] [facility] Hep B, Adol or Pedi Dosage 1999 00:00:[address] [facility] HIB 4 Dose Schedule 1999 00:00:[address] [facility] Polio (IPV/OPV) 1999 00:00:[address] [facility] Hep B, Adol or Pedi Dosage 1999 00:00:[address] [facility] DTAP 1999 00:00:00 Completed HIB 4 Dose Schedule 1999 00:00:00 Completed Hep B, Adol or Pedi Dosage 1999 00:00:00 Completed Polio (IPV/OPV) 1999 00:00:00 Completed Polio (IPV/OPV) 1999 00:00:[address] [facility] DTAP 1999 00:00:[address] [facility] HIB 4 Dose Schedule 1999 00:00:[address] [facility] Hep B, Adol or Pedi Dosage 1999 00:00:[address] [facility] Polio (IPV/OPV) 1999 00:00:[address] [facility] DTAP 1999 00:00:[address] [facility] DTAP 1999 00:00:[address] [facility] HIB 4 Dose Schedule 1999 00:00:[address] [facility] Hep B, Adol or Pedi Dosage 1999 00:00:[address] [facility] Hep B, Adol or Pedi Dosage 1999 00:00:[address] [facility] Hep B, Adol or Pedi Dosage 1999 00:00:[address] [facility] Hep B, Adol or Pedi Dosage 1999 00:00:00 Completed Hep B, Adol or Pedi Dosage 1999 00:00:[address] [facility] Hep B, Adol or Pedi Dosage 1999 00:00:[address] [facility] Vital Signs Vital Name Observation Time Observation Value Comments S ource BP Systolic 2024-09-24 00:00:00 138 mm[Hg] [facility] Height 2024-09-24 00:00:00 70 [in_i] [facility] BP Diastolic 2024-09-24 00:00:00 77 mm[Hg] [facility] BP Diastolic 2024-09-16 00:00:00 82 mm[Hg] [facility] Height 2024-09-16 00:00:00 70 [in_i] [facility] BP Systolic 2024-09-16 00:00:00 136 mm[Hg] [facility] BP Diastolic 2024-09-12 00:00:00 84 mm[Hg] [facility] Body Weight 2024-09-12 00:00:00 2896 [oz_av] [facility] BP Systolic 2024-09-12 00:00:00 136 mm[Hg] [facility] BMI (Body Mass Index) 2024-09-12 00:00:00 26 kg/m2 [facility] Height 2024-09-12 00:00:00 70 [in_i] [facility] Systolic blood pressure 2024-09-10 05:25:00 149 mm[Hg] [facility] Diastolic blood pressure 2024-09-10 05:25:00 89 mm[Hg] [facility] Heart rate 2024-09-10 05:25:00 85 /min [facility] Body temperature 2024-09-10 05:25:[address] [facility] Respiratory rate 2024-09-10 05:25:00 16 /min [facility] Oxygen saturation in Arterial blood by Pulse oximetry 2024-09-10 05:25:00 97 /min [facility] Height 2024-07-08 00:00:00 70 [in_i] [facility] Body Weight 2024-07-08 00:00:00 2899.2 [oz_av] [facility] BP Diastolic 2024-07-08 00:00:00 71 mm[Hg] [facility] BP Systolic 2024-07-08 00:00:00 103 mm[Hg] [facility] BMI (Body Mass Index) 2024-07-08 00:00:00 26 kg/m2 [facility] BMI (Body Mass Index) 2024-05-06 00:00:00 27.5 kg/m2 [facility] BP Systolic 2024-05-06 00:00:00 130 mm[Hg] [facility] Height 2024-05-06 00:00:00 70 [in_i] [facility] Body Weight 2024-05-06 00:00:00 3072 [oz_av] [facility] BP Diastolic 2024-05-06 00:00:00 75 mm[Hg] [facility] Height 2023-10-05 00:00:00 70 [in_i] [facility] BMI (Body Mass Index) 2023-10-05 00:00:00 27.3 kg/m2 [facility] BP Diastolic 2023-10-05 00:00:00 84 mm[Hg] [facility] Body Weight 2023-10-05 00:00:00 3040 [oz_av] [facility] BP Systolic 2023-10-05 00:00:00 131 mm[Hg] [facility] BMI (Body Mass Index) 2023-03-29 00:00:00 27.6 kg/m2 [facility] BP Diastolic 2023-03-29 00:00:00 71 mm[Hg] [facility] BP Systolic 2023-03-29 00:00:00 125 mm[Hg] [facility] Body Weight 2023-03-29 00:00:00 3081.6 [oz_av] [facility] Height 2023-03-29 00:00:00 70 [in_i] [facility] BP Diastolic 2022-06-27 00:00:00 71 mm[Hg] [facility] Height 2022-06-27 00:00:00 70 [in_i] [facility] BMI (Body Mass Index) 2022-06-27 00:00:00 27.6 kg/m2 [facility] BP Systolic 2022-06-27 00:00:00 116 mm[Hg] [facility] Body Weight 2022-06-27 00:00:00 3078.4 [oz_av] [facility] BP Diastolic 2022-05-23 00:00:00 71 mm[Hg] [facility] Height 2022-05-23 00:00:00 70 [in_i] [facility] BMI (Body Mass Index) 2022-05-23 00:00:00 26.7 kg/m2 [facility] BP Systolic 2022-05-23 00:00:00 126 mm[Hg] [facility] Body Weight 2022-05-23 00:00:00 2976 [oz_av] [facility] BP Diastolic 2022-02-02 00:00:00 72 mm[Hg] [facility] Height 2022-02-02 00:00:00 70 [in_i] [facility] BMI (Body Mass Index) 2022-02-02 00:00:00 25.5 kg/m2 [facility] BP Systolic 2022-02-02 00:00:00 118 mm[Hg] [facility] Body Weight 2022-02-02 00:00:00 2844.8 [oz_av] [facility] BP Diastolic 2021-12-28 00:00:00 69 mm[Hg] [facility] Height 2021-12-28 00:00:00 70 [in_i] [facility] BMI (Body Mass Index) 2021-12-28 00:00:00 25 kg/m2 [facility] BP Systolic 2021-12-28 00:00:00 134 mm[Hg] [facility] Body Weight 2021-12-28 00:00:00 2790.4 [oz_av] [facility] BP Diastolic 2021-08-25 00:00:00 78 mm[Hg] [facility] Height 2021-08-25 00:00:00 70 [in_i] [facility] BMI (Body Mass Index) 2021-08-25 00:00:00 28.5 kg/m2 [facility] BP Systolic 2021-08-25 00:00:00 118 mm[Hg] [facility] Body Weight 2021-08-25 00:00:00 3180.8 [oz_av] [facility] BP Diastolic 2021-03-12 00:00:00 75 mm[Hg] [facility] Height 2021-03-12 00:00:00 70 [in_i] [facility] BMI (Body Mass Index) 2021-03-12 00:00:00 27.4 kg/m2 [facility] BP Systolic 2021-03-12 00:00:00 126 mm[Hg] [facility] Body Weight 2021-03-12 00:00:00 3059.2 [oz_av] [facility] BP Diastolic 2021-02-02 00:00:00 79 mm[Hg] [facility] Height 2021-02-02 00:00:00 70 [in_i] [facility] BMI (Body Mass Index) 2021-02-02 00:00:00 27.8 kg/m2 [facility] BP Systolic 2021-02-02 00:00:00 121 mm[Hg] [facility] Body Weight 2021-02-02 00:00:00 3097.6 [oz_av] [facility] BP Diastolic 2020-07-28 00:00:00 73 mm[Hg] [facility] Height 2020-07-28 00:00:00 70 [in_i] [facility] BMI (Body Mass Index) 2020-07-28 00:00:00 29.6 kg/m2 [facility] BP Systolic 2020-07-28 00:00:00 132 mm[Hg] [facility] Body Weight 2020-07-28 00:00:00 3302.4 [oz_av] [facility] Systolic blood pressure 2020-07-22 22:41:00 126 mm[Hg] [facility] Diastolic blood pressure 2020-07-22 22:41:00 82 mm[Hg] [facility] Heart rate 2020-07-22 22:35:00 86 /min [facility] Body temperature 2020-07-22 22:35:[address] [facility] Respiratory rate 2020-07-22 22:35:00 18 /min [facility] Body height 2020-07-22 22:35:00 175.3 cm [facility] Body weight 2020-07-22 22:35:00 90.719 kg [facility] BMI 2020-07-22 22:35:00 29.53 kg/m2 [facility] Oxygen saturation in Arterial blood by Pulse oximetry 2020-07-22 22:35:00 100 /min [facility] Systolic blood pressure 2019-09-19 01:04:00 149 mm[Hg] [facility] Diastolic blood pressure 2019-09-19 01:04:00 90 mm[Hg] [facility] Heart rate 2019-09-19 01:04:00 94 /min [facility] Body temperature 2019-09-19 01:04:[address] [facility] Respiratory rate 2019-09-19 01:04:00 16 /min [facility] Body weight 2019-09-19 01:04:00 81.647 kg [facility] Oxygen saturation in Arterial blood by Pulse oximetry 2019-09-19 01:04:00 97 /min [facility] Procedures Procedure Date / Time Performed Performing Clinicia n Source XR FOOT 3+ VW RIGHT 2024-09-10 04:23:[address] [facility] TDAP VACCINE, >11 YRS, IM 2020-07-22 22:49:[address] [facility] NOTICE OF PRIVACY PRACTICES 2019-09-19 00:58:16 Doctor Unassigned, Crowell [facility] CONSENT/REFUSAL FOR DIAGNOSIS AND TREATMENT 2019-09-19 00:57:50 Doctor Unassigned, Crowell [facility] Encounters Start Date/Time End Date/Time Encounter Type Admission Type Attending Clinicians Care Facility Care Department Encounter ID Source 2024-09-24 00:00:00 2024-09-24 00:00:00 Jacey Camargo APRN, MSN, BRAILLE TRANSLATOR-BC: [address] [place] [address] , Ph. [facility] [id number] [facility] 2024-09-16 00:00:00 2024-09-16 00:00:00 Jacey Camargo APRN, MSN, BRAILLE TRANSLATOR-BC: [address] [place] [address] , Ph. [facility] 97 [id number] [facility] 2024-09-12 00:00:00 2024-09-12 00:00:00 Jacey Camargo APRN, MSN, BRAILLE TRANSLATOR-BC: [address] [place] [address] , Ph. [facility] [phone] [id number] 2024-09-09 21:57:00 2024-09-10 00:29:00 Emergency X ZHEN, CARLOS A OROURKE, CARLOS A [facility] ERT [id number] [facility] 2024-09-09 21:57:00 2024-09-10 00:29:00 Emergency Carlos A Orourke D [facility] [id number] [facility] 2024-07-08 00:00:00 2024-07-08 00:00:00 Jacey Camargo APRN, MSN, [facility]: [address] [place] [address], [address] [address] , Ph. [facility] 120 [facility] 2024-05-06 00:00:00 2024-05-06 00:00:00 Jacey Camargo APRN, MSN, BRAILLE TRANSLATOR-BC: [address] [place] [address], [address] [address] , Ph. [facility] 90 [id number] [facility] 2023-10-05 00:00:00 2023-10-05 00:00:00 Jacey Camargo APRN, MSN, [facility]: [address] [place] [address], [address] [address] , Ph. [facility] 90 [id number] [facility] 2023-07-25 00:00:00 2023-07-25 00:00:00 Outpatient [place] [id number] [facility] 2023-06-20 00:00:00 2023-06-20 00:00:00 Outpatient L_Pena [facility] [id number] [facility] 2023-05-16 00:00:00 2023-05-16 00:00:00 Outpatient L_Pena [facility] [id number] [facility] 2023-04-11 00:00:00 2023-04-11 00:00:00 Outpatient L_Pena [facility] [id number] [facility] 2023-04-10 00:00:00 2023-04-10 00:00:00 Outpatient L_[facility]ena [facility] [id number] [facility] 2023-03-30 00:00:00 2023-03-30 00:00:00 Outpatient L_[facility]ena [facility] [id number] [facility] 2023-03-29 00:00:00 2023-03-29 00:00:00 Outpatient L_Pena [facility] [id number] [facility] 2023-03-29 00:00:00 2023-03-29 00:00:00 Jacey Camargo APRN, MSN, BRAILLE TRANSLATOR-BC: [address] [place] [address], [address] [address] , Ph. [facility] [id number] [facility] 2022-06-27 00:00:00 2022-06-27 00:00:00 Outpatient L_Pena [facility] [id number] [facility] 2022-06-27 00:00:00 2022-06-27 00:00:00 Jacey Camargo APRN, MSN, BRAILLE TRANSLATOR-BC: 2 [facility], [address] [address] , Ph. [facility] [id number] [facility] 2022-05-25 00:00:00 2022-05-25 00:00:00 Outpatient L_Pena [facility] [id number] [facility] 2022-05-24 00:00:00 2022-05-24 00:00:00 Outpatient L_Pena [facility] [id number] [facility] 2022-05-23 00:00:00 2022-05-23 00:00:00 Outpatient L_Pena [facility] [id number] [facility] 2022-05-23 00:00:00 2022-05-23 00:00:00 Jacey Camargo APRN, MSN, [facility]: [address] [place] [phone] , Ph. [facility] [id number] [facility] 2022-02-02 00:00:00 2022-02-02 00:00:00 Outpatient L_Pena [facility] [id number] [facility] 2022-02-02 00:00:00 2022-02-02 00:00:00 Jacey Camargo APRN, MSN, [facility]: [address] [place] [address], [address] [address] , Ph. [facility] [id number] [facility] 2022-02-02 00:00:00 2022-02-02 00:00:00 Outpatient Jacey Camargo [facility] [id number] 2022-02-02 00:00:00 2022-02-02 00:00:00 Outpatient Jacey Camargo [facility] [id number] 2022-02-02 00:00:00 2022-02-02 00:00:00 Outpatient Jacey Camargo [facility] [id number] 2021-12-28 10:13:00 2021-12-28 10:13:00 Outpatient [facility] [id number] [facility] 2021-12-28 00:00:00 2021-12-28 00:00:00 Jacey Camargo APRN, MSN, BRAILLE TRANSLATOR-: [address] [place] [address], [address] [place] [phone] , Ph. [facility] [id number] [facility] 2021-12-28 00:00:00 2021-12-28 00:00:00 Outpatient Jacey Camargo [facility] [id number] 2021-12-28 00:00:00 2021-12-28 00:00:00 Outpatient Jacey Camargo [facility] [id number] 2021-12-28 00:00:00 2021-12-28 00:00:00 Outpatient Jacey Camargo [facility] [id number] 2021-08-25 05:46:00 2021-08-25 05:46:00 Outpatient [facility] [id number] [facility] 2021-08-25 00:00:00 2021-08-25 00:00:00 Ryanne Garcia APRN-VEHICLE BODY SANDER-C: [address] [place] [address], [address] [place] [phone] , Ph. [facility] [id number] [facility] 2021-08-25 00:00:00 2021-08-25 00:00:00 Outpatient Ryanne Garcia [facility] [id number] 2021-08-24 02:12:00 2021-08-24 02:12:00 Outpatient [facility] [id number] [facility] 2021-07-12 04:20:00 2021-07-12 04:20:00 Outpatient [facility] [id number] [facility] 2021-03-15 05:36:00 2021-03-15 05:36:00 Outpatient [place]AU[place]K _L [facility] [id number] [facility] 2021-03-12 12:42:00 2021-03-12 12:42:00 Outpatient [place] [facility] [id number] 2021-03-12 00:00:00 2021-03-12 00:00:00 Keshia paul [facility]: [address] [place] [address], [address] [address] , Ph. [facility] [id number] [facility] 2021-03-12 00:00:00 2021-03-12 00:00:00 Outpatient Keshia Jurado [facility] [id number] 2021-02-22 06:21:00 2021-02-22 06:21:00 Outpatient [place] _[facility] [id number] [facility] 2021-02-22 06:21:00 2021-02-22 06:21:00 Outpatient [place] _[facility] [id number] 2021-02-15 12:08:00 2021-02-15 12:08:00 Outpatient [place] _[facility] [id number] [facility] 2021-02-02 11:34:00 2021-02-02 11:34:00 Outpatient [place] _L [facility] [id number] [facility] 2021-02-02 00:00:00 2021-02-02 00:00:00 Outpatient CatalinaKeshia hernandez [facility] [id number] 2021-02-02 00:00:00 2021-02-02 00:00:00 Outpatient SherwinnathalieKeshia hernandez [facility] [id number] 2021-02-02 00:00:00 2021-02-02 00:00:00 Outpatient Keshia Jurado [facility] [id number] 2021-02-02 00:00:00 2021-02-02 00:00:00 Keshia So Wendy paul, [facility]-: [address] [place] [address], [address] [place] [phone] , Ph. [facility] [id number] [facility] 2020-12-16 04:35:00 2020-12-16 04:35:00 Outpatient [place] _L [facility] [id number] [facility] 2020-08-22 06:48:00 2020-08-22 06:48:00 Outpatient [place] _[facility] [id number] [facility] 2020-07-28 02:28:00 2020-07-28 02:28:00 Outpatient [place] _L [facility] [id number] [facility] 2020-07-28 00:00:00 2020-07-28 00:00:00 Outpatient CatalinaKeshia hernandez [facility] [id number] 2020-07-28 00:00:00 2020-07-28 00:00:00 Keshia So Wendy paul, AGNP-C: [address] [facility], [address], [place] [address] , Ph. [facility] [id number] [facility] 2020-07-24 01:03:00 2020-07-24 01:03:00 Outpatient [place] _L [facility] [id number] [facility] 2020-07-23 04:40:00 2020-07-23 04:40:00 Outpatient [place] _L [facility] [id number] [facility] 2020-07-22 16:22:44 2020-07-22 16:42:44 Urgent Care Irma Torres Leslie A [facility] One [id number] [facility] 2020-07-22 16:40:00 2020-07-22 16:40:00 Outpatient KEISHA WILLARD [facility] [id number] [facility] 2020-07-15 17:20:59 2020-07-15 17:40:59 Laboratory Only Lab, Adc Fam Pob I Irma Torres [facility] Office [facility] One [id number] [facility] 2020-06-19 01:02:00 2020-06-19 01:02:00 Outpatient [place]K _L [facility] [id number] [facility] 2020-06-19 01:02:00 2020-06-19 01:02:00 Outpatient [place]K _L [facility] [id number] [facility] 2019-09-18 20:06:13 2019-09-18 20:21:00 Emergency Sosa Siu [facility] [id number] [facility] 2019-09-18 20:06:13 2019-09-18 20:06:13 Emergency X ANNE SIUN [facility] ERT [id number] [facility] 2019-09-18 00:00:00 2019-09-18 00:00:00 Orders Only Doctor Unassigned, Crowell [facility] [id number] [facility] Results Test Description Test Time Test Comments Results Resul t Comments Source XR Foot 3+ vw right 2024-09-10 04:25:52 XR FOOT 3+ VW RIGHT HISTORY: ?plantar pain to distal 1st metatarsal after removing a splint,eval for fx, retained FB COMPARISON: ?none available. [facility] Notes Date/Time Note Provider Source 2024-09-10 00:28:10 [...] ambulatory using crutches, in no apparent distress. [facility] 2024-09-09 21:54:26 Pt arrived ambulatory without assist. Pt c/o swelling to right foot after removing splinters from his foot on Monday. T Suzy Lee RN [facility]
--- NOTE | 2024-09-27 16:23 | RAD REPORT ---
EXAMINATION: XR RIGHT FOOT CLINICAL INDICATION: Male, 24 years old. PAIN TECHNIQUE: Multiple views of the right foot were obtained. COMPARISON: No prior exam. FINDINGS: No significant bone or joint abnormality. No radiopaque foreign body visualized.
[2024-09-27] MEDS ORDERED: LIDOCAINE 1% 20 ML MDV ONE (16:44)
[2024-09-27] MEDS ORDERED: LORAZEPAM 1 MG TABLET ONE (18:00)
--- NOTE | 2024-09-27 19:21 | EDPHYS ---
Physician Documentation [facility] Name: Salvador Salazar Age: 24 yrs Sex: Male : 2000 Arrival Date: 09/27/2024 Time: 15:35 Bed 9 Private MD: ED Physician Steffen Castellon HPI: 09/27 17:49 This 24 yrs old Male presents to ER via Ambulatory with complaints of Foot dr5 Injury. 17:49 Onset: The symptoms/episode began/occurred 3 week(s) ago. Patient is a 24-year-old male dr5 with history of depressive disorder coming in with right foot pain with possible splinter in it for the past 3 weeks. Patient reports that he has been seen 3 times for splinter removal and coming in for continued pain and redness. Patient reports that he completed his antibiotics and pain is still continuing.. Historical: - Allergies: 15:51 No Known Allergies; hb - PMHx: 15:51 depressive disorder; hb - Immunization history:: Adult Immunizations up to date. - Infectious Disease History:: Denies. - Social history:: Smoking status: Reported history of juuling and/or vaping. ROS: 17:49 Constitutional: as per hpi dr5 Exam: 17:49 Constitutional: This is a well developed, well nourished patient who is awake, alert, dr5 and in no acute distress. Head/Face: Normocephalic, atraumatic. ENT: Nares patent. No nasal discharge, no septal abnormalities noted. Tympanic membranes are normal and external auditory canals are clear. Oropharynx with no redness, swelling, or masses, exudates, or evidence of obstruction, uvula midline. Mucous membranes moist. Neck: Trachea midline, no thyromegaly or masses palpated, and no cervical lymphadenopathy. Supple, full range of motion without nuchal rigidity, or vertebral point tenderness. No Meningismus. Chest/axilla: Normal chest wall appearance and motion. Nontender with no deformity. No lesions are appreciated. Cardiovascular: Regular rate and rhythm with a normal S1 and S2. Normal PMI, no JVD. No pulse deficits. Respiratory: Lungs have equal breath sounds bilaterally, clear to auscultation. No rales, rhonchi or wheezes noted. No increased work of breathing, no retractions or nasal flaring. Back: No spinal tenderness. No costovertebral tenderness. Full range of motion. Skin: Redness / swelling on dorsum of right foot. Tenderness to palpation. MS/ Extremity: Pulses equal, no cyanosis. Neurovascular intact. Full, normal range of motion. Neuro: Awake and alert, GCS 15, oriented to person, place, time, and situation. Cranial nerves II-XII grossly intact. Motor strength 5/5 in all extremities. Sensory grossly intact. Cerebellar exam normal. Normal gait. Vital Signs: 15:49 BP 129 / 83; Pulse 12; Resp 16; Temp 98.5; Pulse Ox 98% on R/A; Weight 81.65 kg; Height hb 5 ft. 10 in. ; 15:49 Body Mass Index 25.83 (81.65 kg, 177.8 cm) hb Procedures: 19:25 Foreign Body Removal: sliver of wood, from the right foot, by incising to remove, using dr5 lidocaine 1% with epinephrine to anesthesize the area, tweezers, Dressing: Bandaid, The patient tolerated the removal well. MDM: 15:50 Medical Screening Exam initiated dane 17:49 ED course: Went to perform I\T\D and patient reports he is really anxious and would like dr5 medication prior to procedure. Will give ativan and time to kick in before numbing foot.. 19:25 Differential Diagnosis Foreign body of right foot, Cellulitis, Abscess. Data reviewed: dr5 vital signs, nurses notes. I considered the following discharge prescriptions or medication management in the emergency department Medications were administered in the Emergency Department. See MAR. Care significantly affected by the following chronic conditions: Depression. Care significantly affected by the following Social Determinants of Health: Poor access to healthcare and/or lack of insurance, Poor access to transportation, Problems related to employment. Counseling: I had a detailed discussion with the patient and/or guardian regarding the historical points, exam findings, and any diagnostic results supporting the discharge/admit diagnosis, the presence of at least one elevated blood pressure reading (>120/80) during this emergency department visit, the need for outpatient follow up, for definitive care, a family practitioner, to return to the emergency department if symptoms worsen or persist or if there are any questions or concerns that arise at home. ED course: 1cm piece of wood removed from bottom of right foot. Keflex prescribed for developing infection. PCP follow up recommended. Alternate Tylenol and Motrin as needed for pain. All questions answered and patient is feeling much better.. 09/27 15:53 Order name: Foot Right 3 View XRAY; Complete Time: 16:27 hb 09/27 16:11 Order name: Incision \T\ Drainage Setup; Complete Time: 16:48 dr5 Administered Medications: 18:01 Drug: LORazepam PO 1 mg PO once Route: PO; kj2 18:50 Drug: Lidocaine Infiltration (1 %) 20 ml 20 ml Infiltration once; to bedside Volume: 20 hb ml; Route: Infiltration; Disposition Summary: 09/27/24 19:20 Discharge Ordered Notes: Location: Home dr5 Condition: Stable dr5 Diagnosis - Puncture wound with foreign body, right foot dr5 Followup: dr5 - With: Emergency Department - When: As needed - Reason: Worsening of condition Followup: dr5 - With: Private Physician - When: 1 - 2 days - Reason: Recheck today's complaints, Continuance of care, Re-evaluation by your physician Discharge Instructions: - Discharge Summary Sheet dr5 - Skin Foreign Body dr5 Forms: - Work release form dr5 - Medication Reconciliation Form dr5 - Antibiotic Education dr5 - Patient Portal Instructions dr5 - Leadership Thank You Letter dr5 Prescriptions: - Cephalexin 500 mg Oral Capsule - take 1 capsule ORAL route every 12 hours for 10 days; 20 capsule; Refills: 0, dr5 Product Selection Permitted Signatures: Dispatcher [employer] Steffen Rasmussen MD MD cha Baxter, Heather, RN RN Tiara Castillo, RN RN kj2 Jaime Hernandez, PROBATION AND PAROLE OFFICER-C PROBATION AND PAROLE OFFICER-Cdr5 Corrections: (The following items were deleted from the chart) 15:53 15:53 Foot Right 3 View+RAD.RAD.BRZ ordered. EDSD ALEXIS
--- NOTE | 2024-09-27 19:21 | ER ---
Nurse's Notes [facility] Name: Salvador Salazar Age: 24 yrs Sex: Male : 2000 Arrival Date: 09/27/2024 Time: 15:35 Bed 9 Private MD: Diagnosis: Puncture wound with foreign body, right foot Presentation: 09/27 15:49 Chief complaint: Chief complaint: Patient states: "I got a stick stuck in my right foot hb three weeks ago, I almost passed out then my doctor tried to get the rest out last Monday.". Coronavirus screen: At this time, the client does not indicate any symptoms associated with coronavirus-19. Ebola Screen: No symptoms or risks identified at this time. Initial Sepsis Screen: Does the patient meet any 2 criteria? No. Patient's initial sepsis screen is negative. Does the patient have a suspected source of infection? No. Patient's initial sepsis screen is negative. Risk Assessment: Do you want to hurt yourself or someone else? Patient reports no desire to harm self or others. Onset of symptoms was September 27, 2024. 15:49 Method Of Arrival: Ambulatory hb 15:52 Acuity: FELICITAS 4 hb Triage Assessment: 16:48 General: Appears in no apparent distress. Behavior is cooperative. kj2 Historical: - Allergies: 15:51 No Known Allergies; hb - PMHx: 15:51 depressive disorder; hb - Immunization history:: Adult Immunizations up to date. - Infectious Disease History:: Denies. - Social history:: Smoking status: Reported history of juuling and/or vaping. Screenin:41 [facility] ED Fall Risk Assessment (Adult) History of falling in the last 3 months, kj2 including since admission No falls in past 3 months (0 pts) Confusion or Disorientation No (0 pts) Intoxicated or Sedated No (0 pts) Impaired Gait No (0 pts) Mobility Assist Device Used No (0 pt) Altered Elimination No (0 pt) Score/Fall Risk Level 0 - 2 = Low Risk Oriented to surroundings, Hourly rounding (assess needs \\T\\ fall precautionary measures) done. Abuse screen: Denies threats or abuse. Denies injuries from another. Nutritional screening: No deficits noted. Tuberculosis screening: No symptoms or risk factors identified. Assessment: 16:39 Pain: Complains of pain in right foot. Neuro: Level of Consciousness is awake, alert, kj2 Oriented to person, place, time, situation. Cardiovascular: Patient's skin is warm and dry. Respiratory: Airway is patent Respiratory effort is even, unlabored. GI: No signs and/or symptoms were reported involving the gastrointestinal system. : No signs and/or symptoms were reported regarding the genitourinary system. Vital Signs: 15:49 BP 129 / 83; Pulse 12; Resp 16; Temp 98.5; Pulse Ox 98% on R/A; Weight 81.65 kg; Height hb 5 ft. 10 in. ; 15:49 Body Mass Index 25.83 (81.65 kg, 177.8 cm) hb ED Course: 15:40 Patient arrived in ED. cj3 15:46 Jaime Hernandez FNP-C is [facility]. hb 15:51 Arm band placed on. hb 15:52 Triage completed. hb 16:20 Foot Right 3 View XRAY In Process Unspecified. EDMS 16:39 Tiara Castillo, RN is Primary Nurse. kj2 16:48 Patient has correct armband on for positive identification. Provided Education on: call kj2 light. 16:49 No provider procedures requiring assistance completed. kj2 19:21 Steffen Castellon MD is Attending Physician. dr5 Administered Medications: 18:01 Drug: LORazepam PO 1 mg PO once Route: PO; kj2 18:50 Drug: Lidocaine Infiltration (1 %) 20 ml 20 ml Infiltration once; to bedside Volume: 20 hb ml; Route: Infiltration; Medication: 16:48 VIS not applicable for this client. kj2 Outcome: 19:20 Discharge ordered by . dr5 19:23 Discharged to home ambulatory, with family, hb 19:23 Condition: stable 19:23 Discharge instructions given to patient, Instructed on discharge instructions, follow up and referral plans. medication usage, Demonstrated understanding of instructions, follow-up care, medications, wound care, Prescriptions given X 1, 19:24 Patient left the ED. hb Signatures: Dispatcher [employer] EDMS Magui Houston RN RN Tiara Castillo RN RN kj2 Jaime Hernandez FNP-C [employer]OL[employer]ERGLASS-Cdr5 Georgia Magana cj3 Corrections: (The following items were deleted from the chart) 15:52 15:49 Chief complaint: hb hb
[2024-09-27 19:28] VITALS: BP 129/83; TEMP 98.5; O2SAT 98
== END 2024-09-27 19:24 | disposition home or self-care (01) ==
LOC: ER 15:35
DX: S91.341A Puncture wound with foreign body, right foot, initial encounter (principal)
CPT/HCPCS: 99283; J2003

== ENCOUNTER 2025-04-14 19:35 | Emergency (ER) | payer SELFPAY ==
[2025-04-14] MEDS ORDERED: IPRATROPIUM BROM 0.5MG/2.5ML ONE (20:10)
[2025-04-14] MEDS ORDERED: ALBUTEROL 2.5 MG/3 ML NEB SOL ONE (20:10)
[2025-04-14 20:21] LABS: Absolute Lymphocytes (CBC) 2.2 K/uL (0.7-4.9); Hematocrit 43.5 % (39.6-49.0); Hemoglobin 15.4 g/dL (13.6-17.9); MCH 29.5 pg (27.0-35.0); MCHC 35.5 g/dL (32.0-36.0); MCV 83.0 fL (80-100); MPV 9.5 fL (7.6-11.3); Nucleated RBC Absolute Count 0.0 (0-0); Nucleated Red Blood Cells % 0.0 % (0-0); RBC Red Blood Cell Count 5.24 M/uL (4.33-5.43); White Blood Count 6.30 thou/uL (4.3-10.9)
[2025-04-14 20:44] LABS: Influenza A Ag Negative; Influenza B Ag Negative; SARS-CoV-2 Antigen Rapid Res Negative (Negative)
[2025-04-14 20:45] LABS: Anion Gap 9.8 mEq/L (5.0-15.0); BUN Blood Urea Nitrogen 15.0 mg/dL (7-18); Glucose Level 134.0 mg/dL (74-106); Troponin High Sensitivity 5.2 pg/mL (<58.9)
[2025-04-14 20:50] LABS: Potassium 3.8 mEq/L (3.5-5.1)
--- NOTE | 2025-04-14 20:50 | RAD REPORT ---
EXAM: Chest Single View HISTORY: 24 years Male CHEST PAIN COMPARISON: 04/14/2025 FINDINGS: LUNGS/PLEURA: The lungs are clear. No pleural effusions or pneumothorax. No pulmonary edema. CARDIAC/MEDIASTINUM: The cardiac silhouette is within normal limits. UPPER ABDOMEN: No significant abnormality. BONES: No acute abnormality. LINES/TUBES/OTHER: N/A IMPRESSION: No evidence of acute cardiopulmonary disease.
--- NOTE | 2025-04-14 22:00 | EDPHYS ---
Physician Documentation [facility] Name: Salvador Salazar Age: 24 yrs Sex: Male : 2000 Arrival Date: 04/14/2025 Time: 19:35 Bed 18 Private MD: ED Physician Ad Noyola HPI: 04/14 21:24 This 24 yrs old Male presents to ER via Ambulatory with complaints of Chest Congestion, kb Shortness Of Breath. 21:24 Pt is a 24 year old male who presents for chest congestion, cough and chest pain that kb started one week ago. Denies fever. States pain is worse with cough. . Historical: - Allergies: 20:00 No Known Allergies; br2 - PMHx: 20:00 depressive disorder; br2 - PSHx: 20:00 None; br2 - Immunization history:: Adult Immunizations not up to date. - Infectious Disease History:: Denies. - Social history:: Smoking status: Patient reports the use of cigarette tobacco products, smokes one-half pack cigarettes per day, Reported history of juuling and/or vaping. Patient uses alcohol, on a daily basis. Patient/guardian denies using IV drugs. ROS: 20:09 Constitutional: As per HPI kb Exam: 20:10 Constitutional: This is a well developed, well nourished patient who is awake, alert, kb and in no acute distress. Head/Face: Normocephalic, atraumatic. ENT: Moist Mucous membranes Cardiovascular: Regular rate Respiratory: Respirations even and unlabored. No increased work of breathing. Talking in full sentences Skin: Warm, dry with normal turgor. Normal color. MS/ Extremity: Pulses equal, no cyanosis. Neurovascular intact. Full, normal range of motion. Neuro: Awake and alert, GCS 15, oriented to person, place, time, and situation. 20:10 ECG was reviewed by the Attending Physician. Vital Signs: 19:56 BP 149 / 83; Pulse 90; Resp 18; Temp 97.1; Pulse Ox 99% ; Weight 81.65 kg; Height 5 ft. br2 10 in. ; Pain 5/10; 20:13 BP 135 / 85; Pulse 86; Resp 15; Temp 97.1; Pulse Ox 100% on Nebulizer Mask; Pain 4/10; bm8 20:52 BP 135 / 85; Pulse 88; Resp 17; Temp 97.1; Pulse Ox 98% ; Pain 0/10; bm8 21:43 BP 132 / 68; Pulse 73; Resp 17; Temp 97.1; Pulse Ox 100% ; Pain 0/10; bm8 19:56 Body Mass Index 25.83 (81.65 kg, 177.8 cm) br2 19:56 Pain Scale: Adult br2 20:13 Pain Scale: Adult bm8 20:52 Pain Scale: Adult bm8 21:43 Pain Scale: Adult bm8 [place] Coma Score: 20:13 Eye Response: spontaneous(4). Motor Response: obeys commands(6). Verbal Response: bm8 oriented(5). Total: 15. 20:52 Eye Response: spontaneous(4). Motor Response: obeys commands(6). Verbal Response: bm8 oriented(5). Total: 15. 21:43 Eye Response: spontaneous(4). Motor Response: obeys commands(6). Verbal Response: bm8 oriented(5). Total: 15. MDM: 19:40 Medical Screening Exam initiated kb 22:05 Differential diagnosis: COVID, flu, pneumonia, URI, bronchitis, arrhythmia, acute MO, kb CAD. Data reviewed: vital signs, nurses notes. I considered the following discharge prescriptions or medication management in the emergency department I discussed and recommended Over The Counter medications, Antibiotics: At this time antibiotics are not recommended. Counseling: I had a detailed discussion with the patient and/or guardian regarding the historical points, exam findings, and any diagnostic results supporting the discharge/admit diagnosis, lab results, radiology results, the need for outpatient follow up, a family practitioner, to return to the emergency department if symptoms worsen or persist or if there are any questions or concerns that arise at home. 04/14 19:42 Order name: COVID-19 Ag + Flu A+B Ag; Complete Time: 20:46 kb 04/14 19:57 Order name: Basic Metabolic Panel; Complete Time: 20:58 kb 04/14 19:57 Order name: CBC with Diff; Complete Time: 20:22 kb 04/14 19:57 Order name: Troponin HS; Complete Time: 20:58 kb 04/14 21:24 Order name: Troponin High Sensitivity; Complete Time: 21:58 kb 04/14 19:57 Order name: XRAY Chest (1 view); Complete Time: 20:58 kb 04/14 19:57 Order name: EKG - Nurse/Tech; Complete Time: 20:06 kb 04/14 19:57 Order name: IV Saline Lock; Complete Time: 20:06 kb 04/14 19:57 Order name: Labs collected and sent; Complete Time: 20:06 kb 04/14 19:57 Order name: O2 Per Protocol; Complete Time: 20:07 kb 04/14 19:57 Order name: O2 Sat Monitoring; Complete Time: 20:07 kb EC:10 Rate is 80 beats/min. Rhythm is regular. QRS [place] is Normal. ID interval is normal at kb 148 msec. QRS interval is normal at 102 msec. QT interval is normal at 400 msec. Administered Medications: 20:13 Drug: Albuterol Inhalation 2.5 mg Inhalation once Route: Inhalation; bm8 20:52 Follow up: Response: No adverse reaction 8 20:13 Drug: Ipratropium Inhalation Aerosol 0.5 mg Inhalation once Route: Inhalation; bm8 20:52 Follow up: Response: No adverse reaction bm8 Disposition Summary: 04/14/25 21:59 Discharge Ordered Notes: Location: Home kb Condition: Stable kb Diagnosis - Acute bronchitis, unspecified kb Followup: kb - With: Emergency Department - When: As needed - Reason: Worsening of condition Followup: kb - With: Private Physician - When: 2 - 3 days - Reason: Recheck today's complaints, Continuance of care, Re-evaluation by your physician Discharge Instructions: - Discharge Summary Sheet kb - Acute Bronchitis, Adult, [id number] kb Forms: - Medication Reconciliation Form kb - Antibiotic Education kb - Prescription Opioid Use kb - Patient Portal Instructions kb - Leadership Thank You Letter kb Prescriptions: - albuterol sulfate 90 mcg/actuation Inhalation HFA Aerosol Inhaler - inhale 2 puff INHALATION route every 4 to 6 hours as needed for shortness of kb breath or wheezing; 1 unit; Refills: 0, Product Selection Permitted Signatures: Dispatcher [employer] Gema Mckeon, PIPELINES LABORER-C PIPELINES LABORER-Virgilio Holm, RN RN bm8 Jessica Rodas, RN RN br2 Corrections: (The following items were deleted from the chart) 19:43 19:43 COVID-19 Ag + Flu A+B Ag+I.LAB.BRZ ordered. EDMS EDMS 19:57 19:57 BASIC METABOLIC PANEL+C.LAB.BRZ ordered. EDMS EDMS 19:57 19:57 CBC+H.LAB.BRZ ordered. EDMS EDMS 19:57 19:57 Troponin High Sensitivity+C.LAB.BRZ ordered. EDMS EDMS 19:57 19:57 Chest Single View+RAD.RAD.BRZ ordered. EDMS EDMS 21:24 21:24 Troponin High Sensitivity+C.LAB.BRZ ordered. EDMS EDMS 21: 21:24 Pt is a 24 year old male who presents for chest congestion, cough and chest pain kb that started . kb
--- NOTE | 2025-04-14 22:00 | ER ---
Nurse's Notes [facility] Name: Salvador Salazar Age: 24 yrs Sex: Male : 2000 Arrival Date: 04/14/2025 Time: 19:35 Bed 18 Private MD: Diagnosis: Acute bronchitis, unspecified Presentation: 04/14 19:56 Chief complaint: Patient states: PT C/O DRY COUGH AND BILATERAL RIB/CP, INTERMITTENT br2 LIGHTHEADED. PT DENIES N/V/D/F. Coronavirus screen: Client denies travel out of the [place] in the last 14 days. Ebola Screen: Patient denies exposure to infectious person. Initial Sepsis Screen: Does the patient meet any 2 criteria? No. Patient's initial sepsis screen is negative. Does the patient have a suspected source of infection? No. Patient's initial sepsis screen is negative. Risk Assessment: Do you want to hurt yourself or someone else? Patient reports no desire to harm self or others. Onset of symptoms was April 07, 2025. 19:56 Method Of Arrival: Ambulatory br2 19:56 Acuity: FELICITAS 3 br2 Triage Assessment: 20:00 General: Appears in no apparent distress. comfortable, Behavior is calm, cooperative. br2 Pain: Complains of pain in anterior aspect of left lateral abdomen and anterior aspect of right lateral abdomen Pain currently is 5 out of 10 on a pain scale. 22:05 Respiratory: Onset: The symptoms/episode began/occurred gradually, the patient has mild bm8 shortness of breath. Historical: - Allergies: 20:00 No Known Allergies; br2 - PMHx: 20:00 depressive disorder; br2 - PSHx: 20:00 None; br2 - Immunization history:: Adult Immunizations not up to date. - Infectious Disease History:: Denies. - Social history:: Smoking status: Patient reports the use of cigarette tobacco products, smokes one-half pack cigarettes per day, Reported history of juuling and/or vaping. Patient uses alcohol, on a daily basis. Patient/guardian denies using IV drugs. Screenin:15 [facility] ED Fall Risk Assessment (Adult) History of falling in the last 3 months, bm8 including since admission No falls in past 3 months (0 pts) Confusion or Disorientation No (0 pts) Intoxicated or Sedated No (0 pts) Impaired Gait No (0 pts) Mobility Assist Device Used No (0 pt) Altered Elimination No (0 pt) Score/Fall Risk Level 0 - 2 = Low Risk Oriented to surroundings, Maintained a safe environment, Educated pt \T\ family on fall prevention, incl call for assistance when getting out of bed, Assessed \T\ reinforced patient's understanding of fall precautions, Hourly rounding (assess needs \T\ fall precautionary measures) done, Used ambulatory aids as needed (educated on \T\ assisted with), Used gait belt as appropriate. Abuse screen: Denies threats or abuse. Nutritional screening: No deficits noted. Tuberculosis screening: No symptoms or risk factors identified. Assessment: 20:13 General: Appears in no apparent distress. comfortable, Behavior is calm, cooperative, bm8 appropriate for age. Pain: Complains of pain in anterior aspect of right upper chest, anterior aspect of left upper chest, diaphragm, right lateral anterior chest and left lateral anterior chest Pain currently is 4 out of 10 on a pain scale. Quality of pain is described as aching, crampy. Neuro: No deficits noted. Level of Consciousness is awake, alert, obeys commands, Oriented to person, place, time, situation, Appropriate for age. Cardiovascular: Reports chest pain, shortness of breath, Heart tones S1 S2 present Capillary refill < 3 seconds in bilateral fingers Patient's skin is warm and dry. Rhythm is sinus rhythm. Respiratory: Airway is patent Trachea midline Respiratory effort is even, unlabored, Respiratory pattern is regular, symmetrical, Breath sounds are clear bilaterally. GI: Reports upper abdominal pain, Pain is 4 out of 10 on a pain scale. Patient currently denies nausea, vomiting. : No signs and/or symptoms were reported regarding the genitourinary system. EENT: Reports nasal congestion. Derm: No signs and/or symptoms reported regarding the dermatologic system. Musculoskeletal: No signs and/or symptoms reported regarding the musculoskeletal system. 20:52 Reassessment: Patient appears in no apparent distress at this time. Patient and/or bm8 family updated on plan of care and expected duration. Pain level reassessed. Patient is alert, oriented x 3, equal unlabored respirations, skin warm/dry/pink. Patient states feeling better. Patient states symptoms have improved. 21:43 Reassessment: Patient appears in no apparent distress at this time. Patient and/or bm8 family updated on plan of care and expected duration. Pain level reassessed. Patient is alert, oriented x 3, equal unlabored respirations, skin warm/dry/pink. Patient denies pain at this time. Patient states feeling better. Patient states symptoms have improved. Vital Signs: 19:56 BP 149 / 83; Pulse 90; Resp 18; Temp 97.1; Pulse Ox 99% ; Weight 81.65 kg; Height 5 ft. br2 10 in. ; Pain 5/10; 20:13 BP 135 / 85; Pulse 86; Resp 15; Temp 97.1; Pulse Ox 100% on Nebulizer Mask; Pain 4/10; bm8 20:52 BP 135 / 85; Pulse 88; Resp 17; Temp 97.1; Pulse Ox 98% ; Pain 0/10; bm8 21:43 BP 132 / 68; Pulse 73; Resp 17; Temp 97.1; Pulse Ox 100% ; Pain 0/10; bm8 19:56 Body Mass Index 25.83 (81.65 kg, 177.8 cm) br2 19:56 Pain Scale: Adult br2 20:13 Pain Scale: Adult bm8 20:52 Pain Scale: Adult bm8 21:43 Pain Scale: Adult bm8 [place] Coma Score: 20:13 Eye Response: spontaneous(4). Motor Response: obeys commands(6). Verbal Response: bm8 oriented(5). Total: 15. 20:52 Eye Response: spontaneous(4). Motor Response: obeys commands(6). Verbal Response: bm8 oriented(5). Total: 15. 21:43 Eye Response: spontaneous(4). Motor Response: obeys commands(6). Verbal Response: bm8 oriented(5). Total: 15. ED Course: 19:39 Patient arrived in ED. gm2 19:39 Gema Masterson [facility]NP-C [facility] kb 19:39 Ad Noyola MD is Attending Physician. kb 20:00 Triage completed. br2 20:00 Arm band placed on left wrist. br2 20:06 Virgilio Zapata, RN is Primary Nurse. bm8 20:15 Patient has correct armband on for positive identification. Bed in low position. Call bm8 light in reach. Side rails up X 1. Adult w/ patient. Client placed on continuous cardiac and pulse oximetry monitoring. NIBP monitoring applied. radiagraph operator on. Pulse ox on. NIBP on. Door closed. Noise minimized. Pillow given. Verbal reassurance given. Head of bed elevated. 20:15 No provider procedures requiring assistance completed. Initial lab(s) drawn, by me, bm8 sent to lab. EKG done, by ED staff, reviewed by Gema BISHOP COVID swab sent to lab. Flu and/or RSV swab sent to lab. Strep swab sent to lab. Inserted saline lock: 20 gauge in right forearm, using aseptic technique. Blood collected. Flushed with 10 mL NS. 20:42 XRAY Chest (1 view) In Process Unspecified. EDMS 22:04 Provided Education on: post er care. bm8 22:04 IV discontinued, intact, bleeding controlled, No redness/swelling at site. Pressure bm8 dressing applied. Administered Medications: 20:13 Drug: Albuterol Inhalation 2.5 mg Inhalation once Route: Inhalation; bm8 20:52 Follow up: Response: No adverse reaction bm8 20:13 Drug: Ipratropium Inhalation Aerosol 0.5 mg Inhalation once Route: Inhalation; bm8 20:52 Follow up: Response: No adverse reaction bm8 Medication: 22:04 VIS not applicable for this client. bm8 Outcome: 21:59 Discharge ordered by . adama 22:04 Discharged to home ambulatory, with family, bm8 22:04 Condition: stable 22:04 Discharge instructions given to patient, family, Instructed on discharge instructions, follow up and referral plans. no drinking with medication, no driving heavy equipment, medication usage, safety practices, Demonstrated understanding of instructions, follow-up care, medications, Prescriptions given X 1, 22:07 Patient left the ED. bm8 Signatures: Dispatcher [employer] EDAZ Gema Masterson, Brittany Cisneros gm2 Virgilio Zapata RN RN bm8 Jessica Rodas RN RN br2 Corrections: (The following items were deleted from the chart) 21:43 21:43 Reassessment: Patient appears in no apparent distress at this time. bm8 bm8
[2025-04-15 06:37] VITALS: TEMP 97.1
[2025-04-15 06:41] VITALS: BP 132/68; O2SAT 100
== END 2025-04-14 22:07 | disposition home or self-care (01) ==
LOC: ER 19:35
DX: J20.9 Acute bronchitis, unspecified (principal); R05.9 Cough, unspecified; R07.9 Chest pain, unspecified; F17.210 Nicotine dependence, cigarettes, uncomplicated; Z11.52 Encounter for screening for COVID-19
CPT/HCPCS: 36415; 71045; 80048; 84484; 85025; 87428; 93005; 99285; J7613; J7644